=== PATIENT | male | born 1945 | race Caucasian/White ===

== ENCOUNTER 2020-12-23 14:26 | Emergency (ER) | payer MEDICARE ==
[2020-12-23 14:43] VITALS: PULSE 75
[2020-12-23] MEDS ORDERED: Adacel Vial IM ONE ×2 (15:12→15:23)
--- NOTE | 2020-12-23 15:18 | ERPHSYRPT ---
- History of Present Illness Time Seen by Provider: 12/23/20 15:13 Source: patient Exam Limitations: no limitations Patient Subjective Stated Complaint: Pt was on his golf cart and had his hand holding up on the top of it and he slipped inside the cart causing him to slide his hand and cut it on something, cut his left pinky at the base and the palm of his hand Triage Nursing Assessment: Pt brought to the ER by his grandson, hypertensive, rates pain as 2/10 in the left hand, 2 lacerations measuring approx 3.5 cm each, actively bleeding, denies any other injuries Physician History: Pt was on his golf cart and had his hand holding up on the top of it and he slipped inside the cart causing him to slide his hand and cut it on something, cut his left pinky at the base and the palm of his hand Occurred: just prior to arrival Method of Injury: incised Severity of Pain-Max: mild Severity of Pain-Current: mild Extremities Pain Location: hand: left, 5th finger: left Allergies/Adverse Reactions: Iodinated Contrast Media Allergy (Verified 12/23/20 14:43) Hx Tetanus, Diphtheria Vaccination/Date Given: No Travel Risk - International Travel Have you traveled outside of the country in past 3 weeks: No - Coronavirus Screening Are you exhibiting any of the following symptoms?: No Close contact with a COVID-19 positive Pt in past 14-21 Days: No - Vaccine Status Have you recieved a Covid-19 vaccination: Yes [employer]: [employer] - Vaccination Dates Date of 2cond Vaccination (if applicable): 05/21/2020 - Review of Systems Constitutional: No Symptoms Eyes: No Symptoms Ears, Nose, & Throat: No Symptoms Respiratory: No Symptoms Cardiac: No Symptoms Abdominal/Gastrointestinal: No Symptoms Musculoskeletal: No Symptoms Skin: Other (laceration) - Past Medical History Pertinent Past Medical History: Yes Cardiac History: High Cholesterol, Hypertension Endocrine Medical History: Diabetes Type II - Past Surgical History Past Surgical History: Yes Cardiac: CABG, Cardiac Stent Musculoskeletal: Orthopedic Surgery Other Surgical History: 10 stents, back surgeryl rotator cuff - Social History Smoking Status: Never smoker Exposure to second hand smoke: No Drug Use: none Patient Lives Alone: No - Nursing Vital Signs Nursing Vital Signs: Initial Vital Signs Temperature 96.4 F 12/23/20 14:32 Pulse Rate 75 12/23/20 14:32 Blood Pressure 150/82 12/23/20 14:32 O2 Sat by Pulse Oximetry 96 12/23/20 14:32 Pain Scale Pain Intensity 2 - Physical Exam General Appearance: no apparent distress Eyes, Ears, Nose, Throat Exam: normal ENT inspection Neck Exam: normal inspection Back Exam: normal inspection Shoulder Exam: normal inspection Elbow/Forearm Exam: normal inspection Wrist Exam: normal inspection Hand Exam: normal inspection, laceration (2 cms at base of 5th digit, 1 cm at proximal phalynx 5th digit), soft tissue tenderness, No deformity, No limited ROM, No nail injury, No stiffness Neuro/Tendon Exam: normal sensation, normal motor functions Mental Status Exam: alert Skin Exam: normal color SpO2: 96 Procedures - Laceration/Wound Repair Left Hand Time of Procedure: 15:16 Wound Location: Left (5th finger and base at 5th finger) Wound's Depth, Shape: superficial Wound Explored: clean Irrigated: Yes Hibiclens Prep: Yes Anesthesia: local, 1% Lidocaine Volume Anesthetic (ccs): 5 Wound Debrided: minimal Wound Repaired With: sutures Suture Size/Type: 4-0, nylon Number of Sutures: 5 Layer Closure?: No Sterile Dressing Applied?: Yes Splint Applied?: Yes Type of Splint Applied: finger Sling Applied?: No - Course Nursing assessment & vital signs reviewed: Yes Ordered Tests: Active Orders 24 hr Category Date Time Status Wound Care STAT Care 12/23/20 14:56 Active Medication Summary Generic Name Dose Route Start Last Admin Trade Name Freq PRN Reason Stop Dose Admin Diphtheria/Tetanus/Acell Pertussis 0.5 ml 12/23/20 15:12 Adacel Vial IM 12/23/20 15:13 .ONCE ONE - Progress Progress: improved Counseled pt/family regarding: diagnosis, need for follow-up (sutures removal in 10 days) - Departure Departure Disposition: Home Clinical Impression: Laceration of finger of left hand Qualifiers: Encounter type: initial encounter Finger: little finger Damage to nail status: without damage Foreign body presence: without foreign body Qualified Code(s): S61.217A - Laceration without foreign body of left little finger without damage to nail, initial encounter Laceration of left hand Qualifiers: Encounter type: initial encounter Foreign body presence: without foreign body Qualified Code(s): S61.412A - Laceration without foreign body of left hand, initial encounter Condition: Stable Critical Care Time: No Referrals: HOSPITAL,'S [Primary Care Provider] - Instructions: Wound Care (DC), Laceration Repair With Stitches (DC) Additional Instructions: Discharge/Care Plan BRITTANI TAYLOR was seen on 12/23/20 in the Emergency Room. The patient was counseled regarding Diagnosis,Lab results, Imaging studies, need for follow up and when to return to the Emergency Room. Prescriptions given: Discharge Note I have spoken with the patient and/or caregivers. I have explained the patient's condition, diagnosis and treatment plan based on the information available to me at this time. I have answered the patient's and/or caregiver's questions and addressed any concerns. The patient and/or caregivers have as good understanding of the patient's diagnosis, condition and treatment plan as can be expected at this point. The vital signs have been stable. The patient's condition is stable and appropriate for discharge from the emergency department. The patient will pursue further outpatient evaluation with the primary care physician or other designated or consulting physician as outlined in the discharge instructions. The patient and/or caregivers are agreeable to this plan of care and follow-up instructions have been explained in detail. The patient and/or caregivers have received these instruction. The patient/and or caregivers are aware that any significant change in condition or worsening of symptoms should prompt an immediate return to this or the closest emergency department or call 911. LACERATION CARE 1. Do not use peroxide, merthiolate, alcohol, or betadine. 2. Keep wound clean and dry. 3. Change dressing if it becomes wet or soiled. 4. If you must work, wear protective covering. 5. You may return to the emergency department or see your family physician for suture removal. 6. See your family physician or return to the emergency department for any of the following signs or symptoms: A. Redness B. Swelling C. Discolored drainage D. Red streaks E. Elevated temperature F. Other signs of infection
[2020-12-23 15:37] VITALS: BP 159/86; O2SAT 98
== END 2020-12-23 15:36 | disposition home or self-care (01) ==
LOC: ED 14:26
DX: S61.217A Laceration without foreign body of left little finger without damage to nail, initial encounter (principal); S61.412A Laceration without foreign body of left hand, initial encounter; W26.8XXA Contact with other sharp object(s), not elsewhere classified, initial encounter; Y93.53 Activity, golf
CPT/HCPCS: 12002; 90471; 90715; 99283

== ENCOUNTER 2021-01-07 15:03 | Emergency (ER) | payer MEDICARE ==
[2021-01-07] MEDS ORDERED: TORAdol 30 mg Injection IV ONE (15:44)
[2021-01-07] MEDS ORDERED: Sodium Chloride 0.9% 1000 ML 1,000 ML IV SCH (15:45)
--- NOTE | 2021-01-07 15:49 | ERPHSYRPT ---
- History of Present Illness Time Seen by Provider: 01/07/21 15:45 Historian: patient Exam Limitations: no limitations Patient Subjective Stated Complaint: abd pain and hematuria Triage Nursing Assessment: pt to ED c/o RLQ pain and hematuria. pt states his pain began around 10 days ago after he had an accident on a golf cart, hematuria and "tasting blood in my mouth" started 2-3 days ago. denies NVD or spitting up any blood. pt called [facility] today and was referred to this ED for evaluation. Physician History: Patient is a 75-year-old male presents to our ED for evaluation of abdominal pain and hematuria. Patient receives his care at the [facility]. He called the [facility] and was advised to come to our ED for evaluation. Patient states his pain started about 10 days ago. It is localized to the right lower quadrant. He is also experiencing associated hematuria. Patient fell off of a golf cart approximately 10 days ago and states his symptoms started then. He occasionally has a blood-like sensation in his mouth. No associated chest pain or shortness of breath. No nausea vomiting or diaphoresis. No trauma. No fever. Symptoms are mild to moderate in intensity. No specific worsening improving factors. Patient denies a history of the same. He voices no other complaints concerns at this time. Timing/Duration: day(s) (10 days ago) Activities at Onset: other (Fell off of a golf cart) Quality: aching Abdominal Pain Onset Location: RUQ Pain Radiation: RLQ Severity of Pain-Max: moderate Severity of Pain-Current: none Modifying Factors: Improves With: palpation Associated Symptoms: denies symptoms, No chest pain, No fever/chills, No nausea, No neck pain, No vomiting, No weakness Previous symptoms: no prior history Allergies/Adverse Reactions: Iodinated Contrast Media Allergy (Verified 01/07/21 15:17) Home Medications: Clopidogrel Bisulfate 75 mg [PLAVIX 75 MG Tablet] 75 mg PO DAILY 01/07/21 [History] Metformin HCl 500 mg [Glucophage 500 MG] 500 mg PO DAILY 01/07/21 [History] Rosuvastatin Calcium [Crestor] 5 mg PO DAILY 01/07/21 [History] Hx Tetanus, Diphtheria Vaccination/Date Given: Yes Hx Influenza Vaccination/Date Given: Yes Hx Pneumococcal Vaccination/Date Given: Yes Immunizations Up to Date: Yes Travel Risk - International Travel Have you traveled outside of the country in past 3 weeks: No - Coronavirus Screening Are you exhibiting any of the following symptoms?: No Close contact with a COVID-19 positive Pt in past 14-21 Days: No - Vaccine Status Have you recieved a Covid-19 vaccination: No Manager Critical Care Unit: [employer] - Vaccination Dates Date of 2cond Vaccination (if applicable): 05/21/2020 - Review of Systems Constitutional: No Symptoms, No Fever, No Chills Eyes: No Symptoms Ears, Nose, & Throat: No Symptoms Respiratory: No Symptoms, No Cough, No Dyspnea Cardiac: No Symptoms, No Chest Pain, No Edema, No Syncope Abdominal/Gastrointestinal: No Symptoms, No Abdominal Pain, No Nausea, No Vomiting, No Diarrhea Genitourinary Symptoms: No Symptoms, No Dysuria Musculoskeletal: No Symptoms, No Back Pain, No Neck Pain Skin: No Symptoms, No Rash Neurological: No Symptoms, No Dizziness, No Focal Weakness, No Sensory Changes Psychological: No Symptoms Endocrine: No Symptoms Hematologic/Lymphatic: No Symptoms Immunological/Allergic: No Symptoms All Other Systems: Reviewed and Negative - Past Medical History Pertinent Past Medical History: Yes Cardiac History: High Cholesterol, Hypertension Endocrine Medical History: Diabetes Type II - Past Surgical History Past Surgical History: Yes Cardiac: CABG, Cardiac Stent Musculoskeletal: Orthopedic Surgery Other Surgical History: 10 stents, back surgeryl rotator cuff - Social History Smoking Status: Never smoker Exposure to second hand smoke: No Drug Use: none Patient Lives Alone: No - Nursing Vital Signs Nursing Vital Signs: Initial Vital Signs Temperature 98.5 F 01/07/21 15:33 Pulse Rate 73 01/07/21 15:33 Respiratory Rate 16 01/07/21 15:33 Blood Pressure 136/63 01/07/21 15:33 O2 Sat by Pulse Oximetry 97 01/07/21 15:33 Pain Scale Pain Intensity 5 - Physical Exam General Appearance: no apparent distress, alert Eye Exam: PERRL/EOMI, eyes nml inspection Ears, Nose, Throat Exam: normal ENT inspection, pharynx normal, moist mucous membranes Neck Exam: normal inspection, non-tender, supple, full range of motion Respiratory Exam: normal breath sounds, lungs clear, airway intact, No chest tenderness, No respiratory distress Cardiovascular Exam: regular rate/rhythm, normal heart sounds, normal peripheral pulses Gastrointestinal/Abdomen Exam: soft, tenderness (Tenderness to palpation of right lower quadrant.), No mass Back Exam: normal inspection, normal range of motion, No CVA tenderness, No vertebral tenderness Extremity Exam: normal inspection, normal range of motion, pelvis stable Neurologic Exam: alert, oriented x 3, cooperative, normal mood/affect, sensation nml, No motor deficits Skin Exam: normal color, warm, dry Lymphatic Exam: No adenopathy SpO2 Interpretation: normal SpO2: 97 O2 Delivery: Room Air Ordered Tests: Active Orders 24 hr Category Date Time Status IV Insertion STAT Care 01/07/21 15:44 Active ABDOMEN AND PELVIS W/0 CONTRAS [CT] Stat Exams 01/07/21 15:44 Completed CBC W DIFF Stat Lab 01/07/21 16:08 Completed CMP Stat Lab 01/07/21 16:08 Completed UA W/RFX UR CULTURE Stat Lab 01/07/21 16:28 Completed Medication Summary Generic Name Dose Route Start Last Admin Trade Name Freq PRN Reason Stop Dose Admin Sodium Chloride 1,000 mls @ 100 mls/hr 01/07/21 15:45 01/07/21 16:13 Sodium Chloride 0.9% 1000 Ml IV 02/06/21 15:44 100 mls/hr .Q10H DEONDRE Administration Discontinued Medications Generic Name Dose Route Start Last Admin Trade Name Freq PRN Reason Stop Dose Admin Ketorolac Tromethamine 30 mg 01/07/21 15:44 01/07/21 16:12 Ketorolac Tromethamine 30 Mg/Ml Inj IV 01/07/21 15:45 30 mg STAT ONE Administration Ketorolac Tromethamine Confirm 01/07/21 16:11 Ketorolac Tromethamine 30 Mg/Ml Inj Administered 01/07/21 16:12 Dose 30 mg .ROUTE .Ismole-MED ONE Lab/Rad Data: Laboratory Result Diagrams 01/07/21 16:08 01/07/21 16:08 Laboratory Results 01/07/21 01/07/21 01/07/21 Range/Units 16:28 16:08 16:08 WBC 8.3 (4.0-10.5) K/mm3 RBC 4.87 (4.1-5.6) M/mm3 Hgb 14.7 (12.5-18.0) gm/dl Hct 46.7 (42-50) % MCV 95.9 (78-100) fl MCH 30.2 (26-32) pg MCHC 31.5 L (32-36) g/dl RDW 14.0 (11.5-14.0) % Plt Count 247 (150-450) K/mm3 MPV 9.2 (7.5-11.0) fl Gran % 51.2 (36.0-66.0) % Eos # (Auto) 0.13 (0-0.5) Absolute Lymphs (auto) 3.18 (1.0-4.6) Absolute Monos (auto) 0.69 (0.0-1.3) Lymphocytes % 38.2 (24.0-44.0) % Monocytes % 8.3 (0.0-12.0) % Eosinophils % 1.6 (0.00-5.0) % Basophils % 0.7 (0.0-0.4) % Absolute Granulocytes 4.26 (1.4-6.9) Basophils # 0.06 (0-0.4) Sodium 139 (137-145) mmol/L Potassium 4.8 (3.5-5.1) mmol/L Chloride 101 (98-107) mmol/L Carbon Dioxide 28 (22-30) mmol/L Anion Gap 14.3 (5-15) MEQ/L BUN 28 H (9-20) mg/dL Creatinine 1.09 (0.66-1.25) mg/dL Estimated GFR > 60.0 ML/MIN Glucose 142 H (74-106) mg/dL Calcium 9.0 (8.4-10.2) mg/dL Total Bilirubin 0.30 (0.2-1.3) mg/dL AST 34 (17-59) U/L ALT 28 (0-50) U/L Alkaline Phosphatase 57 (38-126) U/L Serum Total Protein 7.1 (6.3-8.2) g/dL Albumin 4.3 (3.5-5.0) g/dL Urine Color YELLOW (YELLOW) Urine Appearance CLEAR (CLEAR) Urine pH 5.0 (5-6) Ur Specific [place] 1.030 (1.005-1.025) Urine Protein NEGATIVE (Negative) Urine Ketones NEGATIVE (NEGATIVE) Urine Blood NEGATIVE (0-5) Héctor/ul Urine Nitrite NEGATIVE (NEGATIVE) Urine Bilirubin NEGATIVE (NEGATIVE) Urine Urobilinogen NEGATIVE (0-1) mg/dL Ur Leukocyte Esterase NEGATIVE (NEGATIVE) Urine WBC (Auto) NONE (0-5) /HPF Urine RBC (Auto) 0-2 (0-2) /HPF U Epithel Cells (Auto) NONE (FEW) /HPF Urine Bacteria (Auto) NONE (NEGATIVE) /HPF Urine Mucus (Auto) SLIGHT (NEGATIVE) /HPF Urine Culture Reflexed NO (NO) Urine Glucose NEGATIVE (NEGATIVE) mg/dL - Progress Progress: improved Progress Note: Patient reassessed. Pain resolved. Work-up essentially unremarkable. Patient described hematuria however there is no hematuria observed in his urinalysis. Laboratory work-up essentially nonremarkable. CT scan did not reveal a kidney stone. Appendix is normal. There is some fecal stasis. However no acute int ra-abdominal process. No indication for further work-up or antibiotics. Will discharge patient home. Patient agrees to follow-up with his primary care doctor within 48 hours for reevaluation. Plan of care discussed with patient. He voices no other complaints or concerns at this time. Portions of this note were created with voice recognition technology. There may be grammatical, spelling, punctuation or sound alike errors 01/07/21 17:50 Counseled pt/family regarding: lab results, diagnosis, need for follow-up, rad results - Departure Departure Disposition: Home Clinical Impression: Left nephrolithiasis, Duodenal lipoma, Fatty liver, Aortoiliac calcifications, Arthritis of spine, Spondylolisthesis Condition: Stable Critical Care Time: No Referrals: HOSPITAL,'S [Primary Care Provider] - Additional Instructions: Discharge/Care Plan BRANDONBRITTANI ESTEBAN was seen on 01/07/21 in the Emergency Room. The patient was counseled regarding Diagnosis,Lab results, Imaging studies, need for follow up and when to return to the Emergency Room. Prescriptions given: Discharge Note I have spoken with the patient and/or caregivers. I have explained the patient's condition, diagnosis and treatment plan based on the information available to me at this time. I have answered the patient's and/or caregiver's questions and addressed any concerns. The patient and/or caregivers have as good understanding of the patient's diagnosis, condition and treatment plan as can be expected at this point. The vital signs have been stable. The patient's condition is stable and appropriate for discharge from the emergency department. The patient will pursue further outpatient evaluation with the primary care physician or other designated or consulting physician as outlined in the dischar ge instructions. The patient and/or caregivers are agreeable to this plan of care and follow-up instructions have been explained in detail. The patient and/or caregivers have received these instruction. The patient/and or caregivers are aware that any significant change in condition or worsening of symptoms should prompt an immediate return to this or the closest emergency department or call 911.
[2021-01-07] MEDS ORDERED: TORAdol 30 mg Injection ONE (16:11)
[2021-01-07] MEDS ORDERED: Sodium Chloride 0.9% 1000 ML 1,000 ML ONE (16:11)
[2021-01-07 16:24] LABS: Absolute Neutrophil Ct (ANC) 4.26 (1.4-6.9); BASOPHIL % 0.7 % (0.0-0.4); Basophil (Absolute #) 0.06 (0-0.4); Eosinophil % 1.6 % (0.00-5.0); Eosinophil (Absolute #) 0.13 (0-0.5); Hematocrit 46.7 % (42-50); Hemoglobin 14.7 gm/dl (12.5-18.0); Lymphocyte (Absolute #) 3.18 (1.0-4.6); Lymphocytes % 38.2 % (24.0-44.0); Mean Cell Volume 95.9 fl (78-100); Mean Corpuscular Hemoglobin 30.2 pg (26-32); Mean Corpuscular Hgb Concent. 31.5 g/dl (32-36); Mean Platelet Volume 9.2 fl (7.5-11.0); Monocyte (Absolute #) 0.69 (0.0-1.3); Monocytes % 8.3 % (0.0-12.0); Neutrophil % 51.2 % (36.0-66.0); Platelet Count 247 K/mm3 (150-450); Red Blood Count 4.87 M/mm3 (4.1-5.6); White Blood Count 8.3 K/mm3 (4.0-10.5)
--- NOTE | 2021-01-07 16:28 | XRAY ---
Indication: Right abdomen pain. Hematuria. Urolithiasis. Multiple contiguous axial images obtained through the abdomen and pelvis without contrast using renal stone protocol. Comparison: None Lung bases demonstrates minimal dependent atelectasis. No infiltrate or effusion. Heart not enlarged. Left kidney demonstrates nonobstructing punctate calculus. No other renal calculus or evidence for obstructive uropathy in either system. Stomach is markedly distended with food/fluid. Noncontrasted stomach and bowel loops appear nonobstructed. 1.5 cm descending duodenal lipoma. Normal appendix. Mild diffuse scattered colonic fecal debris throughout. Mild diffuse fatty liver. No free fluid/air. Remaining liver, gallbladder, pancreas, spleen, adrenal glands, kidneys, ureters, and bladder are unremarkable for noncontrast exam. Mild/moderate scattered aortoiliac calcifications without AAA. Osseous structures intact with mild/moderate degenerative changes throughout the thoracolumbar spine greatest at L4-S1. Also bilateral L5 spondylolysis with 2 mm spondylolisthesis. Impression: 1. Nonobstructing left renal punctate calculus. 2. Diffuse fecal stasis. 3. Incidental fatty liver, small duodenal lipoma, and chronic bony findings.
[2021-01-07 16:44] LABS: ALBUMIN 4.3 g/dL (3.5-5.0); ALKALINE PHOSPHATASE 57 U/L (38-126); ANION GAP 14.3 MEQ/L (5-15); BLOOD UREA NITROGEN 28 mg/dL (9-20); CHLORIDE 101 mmol/L (98-107); Carbon Dioxide 28 mmol/L (22-30); Creatinine 1 1.09 mg/dL (0.66-1.25); EST GLOMERULAR FILTRATION RATE > 60.0 ML/MIN; Glucose 142 mg/dL (74-106); Potassium 4.8 mmol/L (3.5-5.1); SGOT/AST 34 U/L (17-59); SGPT/ALT 28 U/L (0-50); SODIUM 139 mmol/L (137-145); Total Protein 7.1 g/dL (6.3-8.2)
[2021-01-07 17:17] LABS: Appearance CLEAR (CLEAR); Bilirubin NEGATIVE (NEGATIVE); Blood NEGATIVE Ery/ul (0-5); Glucose NEGATIVE (NEGATIVE); Ketones NEGATIVE (NEGATIVE); Leukocyte Esterase NEGATIVE (NEGATIVE); Mucus SLIGHT /HPF (NEGATIVE); Nitrite NEGATIVE (NEGATIVE); Protein,Urine Dip NEGATIVE (Negative); RBC 0-2 /HPF (0-2); Urobilinogen NEGATIVE mg/dL (0-1)
[2021-01-07 17:33] VITALS: O2SAT 97
[2021-01-07 18:05] VITALS: BP 123/60; PULSE 73
== END 2021-01-07 18:22 | disposition home or self-care (01) ==
LOC: ED 15:03
DX: N20.0 Calculus of kidney (principal); D17.79 Benign lipomatous neoplasm of other sites; K76.0 Fatty (change of) liver, not elsewhere classified; I70.0 Atherosclerosis of aorta; M47.9 Spondylosis, unspecified; M43.10 Spondylolisthesis, site unspecified
CPT/HCPCS: 36000; 36415; 74176; 80053; 81001; 85025; 96374; 99284; J1885

== ENCOUNTER 2023-03-21 10:50 | Emergency (ER) | payer OTHER ==
[2023-03-21 11:36] VITALS: TEMP 98.6; O2SAT 95
--- NOTE | 2023-03-21 12:00 | ERPHSYRPT ---
- History of Present Illness Time Seen by Provider: 03/21/23 11:58 Source: patient Exam Limitations: no limitations Patient Subjective Stated Complaint: Cough Triage Nursing Assessment: Patient ambulated back to ED and requested to sit in chair. Patient A+O X 3. Patient complains of cough for a couple of weeks. Patient states his cough is now productive with thick brown/yellow sputum. Patient complains of left sided back pain 4/10. Patient's daughter lives with him and tested positive for Covid 2 days ago. Lungs clear A/P herman. Physician History: Patient complains of cough for a couple of weeks. Patient states his cough is now productive with thick brown/yellow sputum. Patient complains of left sided back pain /10. Patient's daughter lives with him and tested positive for Covid 2 days ago. Timing/Duration: week(s) (two weeks) Cough Quality/Degree: moderate, productive cough Associated Symptoms: chest pain/soreness, cough, No fever, No chills, No shortness of breath Allergies/Adverse Reactions: Iodinated Contrast Media Allergy (Verified 03/21/23 11:27) Home Medications: Metformin HCl 500 mg [Glucophage 500 MG] 500 mg PO DAILY 01/07/21 [History] Rosuvastatin Calcium [Crestor] 5 mg PO DAILY 01/07/21 [History] Hx Tetanus, Diphtheria Vaccination/Date Given: Yes Hx Influenza Vaccination/Date Given: Yes Hx Pneumococcal Vaccination/Date Given: Yes Immunizations Up to Date: Yes Travel Risk - International Travel Have you traveled outside of the country in past 3 weeks: No - Coronavirus Screening Are you exhibiting any of the following symptoms?: Yes Symptoms: Cough: New Onset, Shortness of Breath Close contact with a COVID-19 positive Pt in past 14-21 Days: Yes - Vaccine Status Have you recieved a Covid-19 vaccination: 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: [employer] - Vaccination Dates Date of 2cond Vaccination (if applicable): 05/21/2020 - Review of Systems Constitutional: No Fever, No Chills Eyes: No Symptoms Ears, Nose, & Throat: No Symptoms Respiratory: Cough, No Dyspnea Cardiac: Chest Pain, No Edema, No Syncope Abdominal/Gastrointestinal: No Abdominal Pain, No Nausea, No Vomiting, No Diarrhea Genitourinary Symptoms: No Dysuria Musculoskeletal: No Back Pain, No Neck Pain Skin: No Rash Neurological: No Dizziness, No Focal Weakness, No Sensory Changes Psychological: No Symptoms Endocrine: No Symptoms All Other Systems: Reviewed and Negative - Past Medical History Pertinent Past Medical History: Yes Neurological History: No Pertinent History Cardiac History: Coronary Artery Disease, High Cholesterol, Hypertension, Myocardial Infarction ([place]) Respiratory History: No Pertinent History Endocrine Medical History: Diabetes Type II Other Medical History: HX OF SAME INJURY TO LEFT QUAD WITH SURGICAL REPAIR. - Past Surgical History Past Surgical History: Yes Cardiac: CABG, Cardiac Stent Musculoskeletal: Orthopedic Surgery Other Surgical History: 10 stents, back surgeryl rotator cuff - Social History Smoking Status: Never smoker Exposure to second hand smoke: No Drug Use: none Patient Lives Alone: No - Nursing Vital Signs Nursing Vital Signs: Initial Vital Signs Temperature 98.6 F 03/21/23 11:28 Pulse Rate 72 03/21/23 11:28 Respiratory Rate 18 03/21/23 11:28 Blood Pressure 148/65 03/21/23 11:28 O2 Sat by Pulse Oximetry 98 03/21/23 11:28 Pain Scale Pain Intensity 4 - Physical Exam General Appearance: no apparent distress, alert Eye Exam: PERRL/EOMI, eyes nml inspection Ears, Nose, Throat Exam: normal ENT inspection, TMs normal, pharynx normal, moist mucous membranes Neck Exam: normal inspection, non-tender, supple, full range of motion Respiratory Exam: diminished breath sounds, No respiratory distress Cardiovascular Exam: regular rate/rhythm, normal heart sounds Gastrointestinal/Abdomen Exam: soft, No tenderness Back Exam: normal inspection, No CVA tenderness, No vertebral tenderness Extremity Exam: normal inspection, normal range of motion Neurologic Exam: alert, oriented x 3, cooperative, normal mood/affect, sensation nml, No motor deficits Skin Exam: normal color, warm, dry, No rash Lymphatic Exam: No adenopathy SpO2: 95 - Course Nursing assessment & vital signs reviewed: Yes EKG Interpreted by Me: Sinus Rhythm Rhythm Strip: Normal Sinus Rhythm - Radiology Exams Chest X-ray Interpretation: Reviewed by me, Negative, No Pneumonia Ordered Tests: Active Orders 24 hr Category Date Time Status EKG-ER Only STAT Care 03/21/23 11:54 Active CHEST 2 VIEWS (PA AND LAT) Stat Exams 03/21/23 11:54 Taken CBC W DIFF Stat Lab 03/21/23 12:15 Completed CMP Stat Lab 03/21/23 12:15 Completed PROCALCITONIN Stat Lab 03/21/23 12:15 Received Medication Summary Discontinued Medications Generic Name Dose Route Start Last Admin Trade Name Freq PRN Reason Stop Dose Admin Guaifenesin/Codeine Phosphate 10 ml 03/21/23 12:25 Guaifenesin/Codeine Phosphate 5 Ml Udcup PO 03/21/23 12:26 ONCE ONE Lab/Rad Data: Laboratory Result Diagrams 03/21/23 12:15 03/21/23 12:15 Laboratory Results 03/21/23 03/21/23 03/21/23 Range/Units 12:15 12:15 11:17 WBC 6.0 (4.0-10.5) x10^3/uL RBC 4.85 (4.1-5.6) x10^6/uL Hgb 15.6 (12.5-18.0) g/dL Hct 47.0 (42-50) % MCV 96.9 (78-100) fL MCH 32.2 H (26-32) pg MCHC 33.2 (32-36) g/dL RDW 13.4 (11.5-14.0) % Plt Count 227 (150-450) x10^3/uL MPV 8.7 (7.5-11.0) fL Gran % 46.1 (36.0-66.0) % Immature Gran % (Auto) 0.3 (0.00-0.4) % Nucleat RBC Rel Count 0.0 (0.00-0.1) % Eos # (Auto) 0.12 (0-0.5) x10^3/uL Immature Gran # (Auto) 0.02 (0.00-0.03) x10^3u/L Absolute Lymphs (auto) 2.37 (1.0-4.6) x10^3/uL Absolute Monos (auto) 0.66 (0.0-1.3) x10^3/uL Absolute Nucleated RBC 0.00 (0.00-0.01) x10^3u/L Lymphocytes % 39.6 (24.0-44.0) % Monocytes % 11.0 (0.0-12.0) % Eosinophils % 2.0 (0.00-5.0) % Basophils % 1.0 (0.0-0.4) % Absolute Granulocytes 2.76 (1.4-6.9) x10^3/uL Basophils # 0.06 (0-0.4) x10^3/uL Sodium 131 L (137-145) mmol/L Potassium 4.2 (3.5-5.1) mmol/L Chloride 100 (98-107) mmol/L Carbon Dioxide 26 (22-30) mmol/L Anion Gap 9.2 (5-15) MEQ/L BUN 20 (9-20) mg/dL Creatinine 0.71 (0.66-1.25) mg/dL Estimated GFR 95.1 ML/MIN Glucose 99 (74-106) mg/dL Calcium 8.6 (8.4-10.2) mg/dL Total Bilirubin 0.50 (0.2-1.3) mg/dL AST 36 (17-59) U/L ALT 40 (0-50) U/L Alkaline Phosphatase 54 (38-126) U/L Serum Total Protein 7.2 (6.3-8.2) g/dL Albumin 4.3 (3.5-5.0) g/dL Influenza Type A Ag NEGATIVE (NEGATIVE) Influenza Type B Ag NEGATIVE (NEGATIVE) RSV (PCR) NEGATIVE (NEGATIVE) SARS-CoV-2 (PCR) POSITIVE A (NEGATIVE) - Progress Progress: improved Air Movement: good Blood Culture(s) Obtained: No Antibiotics given: No Counseled pt/family regarding: lab results, diagnosis, need for follow-up, rad results Medical Desision Making - Diagnostic Testing Diagnostic test were ordered, analyzed, and reviewed by me: Yes Radiological Interpretation: Reviewed by me - Risk of complications Low Risk: Low risk of morbidity from additional dx testing or treatment - Departure Departure Disposition: Home Clinical Impression: COVID-19, Cough with exposure to COVID-19 virus Condition: Stable Critical Care Time: No Referrals: HOSPITAL,'S [Primary Care Provider] - Follow up/PCP as directed Instructions: Cough, Adult (DC), COVID-19 (DC) Additional Instructions: Discharge/Care Plan BRITTANI TAYLOR was seen on 03/21/23 in the Emergency Room. The patient was counseled regarding Diagnosis,Lab results, Imaging studies, need for follow up and when to return to the Emergency Room. Prescriptions given: Discharge Note I have spoken with the patient and/or caregivers. I have explained the patient's condition, diagnosis and treatment plan based on the information available to me at this time. I have answered the patient's and/or caregiver's questions and addressed any concerns. The patient and/or caregivers have as good understanding of the patient's diagnosis, condition and treatment plan as can be expected at this point. The vital signs have been stable. The patient's condition is stable and appropriate for discharge from the emergency department. The patient will pursue further outpatient evaluation with the primary care physician or other designated or consulting physician as outlined in the discharge instructions. The patient and/or caregivers are agreeable to this plan of care and follow-up instructions have been explained in detail. The patient and/or caregivers have received these instruction. The patient/and or caregivers are aware that any significant change in condition or worsening of symptoms should prompt an immediate return to this or the closest emergency department or call 911. BRANDONBRITTANI ESTEBAN was seen on 03/21/23 n the Emergency Room. At that time you were treated for an emergent condition, during your visit Laboratory, Radiology and/or other procedures may have been ordered. It is very important that you follow-up with your Primary Care Physician [facility] within the next 24-48 hours to review your Emergency Room visit and the final results of testing that was ordered. Some test results such as Urine Cultures, Blood Cultures, and other cultures if ordered will not be finalized for 24-48 hours. If you do not have a Primary Care Provider please call the medical records department at [phone] ext [phone] to obtain a copy of your results or you may sign into our patient portal to obtain these results by visiting us @ [email or web address] and completing the following steps: 1. Click on the Patient Portal link 2. Click the Patient Self Enrollment Link to complete the enrollment form and entering your 3. Once the enrollment form is completed you will receive an email with a t emporary ID and password at the email address you provided. 4. Next choose a user name and password. Your user name must be at least 4 characters long and your password must be at least 4 characters long. 5. Choose a security question from the list and provide your answer to the question. If you already have signed into the Health Portal you may access your Health Care Information 13/10 by the following steps: 1. Login to our website @ [email or web address] 2. Enter your original user name and password. FAQS The [facility] Health Portal is an online tool that contains your Lab Results, Radiology Reports, Visit History, Discharge Instructions and Health Summary Lab and Radiology Results will not be available for 72 hours on the portal. The Portal is a secure site, passwords are encryted and URLs are re-written so they cannot be copied and pasted. You and authorized family members are the only ones who can access your Portal. Also there is a timeout feature that protects your information if you leave the Portal page open. If you have technical difficulty please use the Contact Us link on the page this will allow you to submit any questions you have regarding the Portal or you may contact the Medical Record Department at [phone] ext [phone]. Prescriptions: Benzonatate 100 mg PO TID #15 cap Nirmatrelvir/Ritonavir [Paxlovid 150-100 mg Dose Pack] 1 each PO UD #20 tab
[2023-03-21 12:01] LABS: INFLUENZA A NEGATIVE (NEGATIVE); INFLUENZA B NEGATIVE (NEGATIVE); RESPIRATORY SYNCTIAL VIRUS NEGATIVE (NEGATIVE)
[2023-03-21 12:04] LABS: SARS-CoV-2 Xpert Express POSITIVE (NEGATIVE)
[2023-03-21] MEDS ORDERED: Robitussin AC Syrup Unit Dose Cup PO ONE (12:25)
[2023-03-21 12:28] LABS: Absolute Neutrophil Ct (ANC) 2.76 x10^3/uL (1.4-6.9); Basophil (Absolute #) 0.06 x10^3/uL (0-0.4); Eosinophil (Absolute #) 0.12 x10^3/uL (0-0.5); Hemoglobin 15.6 g/dL (12.5-18.0); IMMATURE GRAN # 0.02 x10^3u/L (0.00-0.03); IMMATURE GRAN % 0.3 % (0.00-0.4); Lymphocyte (Absolute #) 2.37 x10^3/uL (1.0-4.6); Lymphocytes % 39.6 % (24.0-44.0); Mean Cell Volume 96.9 fL (78-100); Mean Corpuscular Hemoglobin 32.2 pg (26-32); Mean Corpuscular Hgb Concent. 33.2 g/dL (32-36); Mean Platelet Volume 8.7 fL (7.5-11.0); Monocyte (Absolute #) 0.66 x10^3/uL (0.0-1.3); Neutrophil % 46.1 % (36.0-66.0); Platelet Count 227 x10^3/uL (150-450); Red Blood Count 4.85 x10^6/uL (4.1-5.6); Red Cell Distribution Width 13.4 % (11.5-14.0)
[2023-03-21 12:41] LABS: ALBUMIN 4.3 g/dL (3.5-5.0); ANION GAP 9.2 MEQ/L (5-15); BILIRUBIN,TOTAL 0.5 mg/dL (0.2-1.3); Calcium 8.6 mg/dL (8.4-10.2); Creatinine 1 0.71 mg/dL (0.66-1.25); EST GLOMERULAR FILTRATION RATE 95.1 ML/MIN; Potassium 4.2 mmol/L (3.5-5.1); Total Protein 7.2 g/dL (6.3-8.2)
[2023-03-21 12:57] VITALS: BP 150/90; PULSE 71; RESP 18
--- NOTE | 2023-03-21 20:50 | XRAY ---
Indication: Cough. Comparison: January 30, 2021 PA/lateral chest remains hyperinflated and clear. Heart not enlarged again with CABG. Bony thorax intact again with osteopenia and mild degenerative changes. Impression: Continued nonacute chest with chronic features.
== END 2023-03-21 13:15 | disposition home or self-care (01) ==
LOC: ED 10:50
DX: U07.1 COVID-19 (principal); R05.1 Acute cough; M54.9 Dorsalgia, unspecified; E78.5 Hyperlipidemia, unspecified; I10 Essential (primary) hypertension; E11.9 Type 2 diabetes mellitus without complications; Z79.84 Long term (current) use of oral hypoglycemic drugs; Z79.899 Other long term (current) drug therapy
CPT/HCPCS: 0241U; 36415; 71046; 80053; 84145; 85025; 93005; 99283

== ENCOUNTER 2023-04-06 14:58 | Emergency (ER) | payer OTHER ==
--- NOTE | 2023-04-06 15:02 | ERPHSYRPT ---
- History of Present Illness Time Seen by Provider: 04/06/23 15:01 Source: patient, family Exam Limitations: no limitations Physician History: This is a 78-year-old white male patient who receives his medical care primarily at the [facility] and was diagnosed with COVID-19 infection approximately 2 weeks ago in our emergency department on 03/21/2023. Patient was then seen at the [facility] on the prior to today's evaluation and was placed on steroids and cough medicine. He was told to follow-up with them if his symptoms did not markedly improved. They did not. However, today is a holiday for [employer] and he was told to come to the emergency department for reevaluation. Patient has a dry, nonproductive cough. He arrives with a room air oxygen saturation level of 88%. He does have right upper anterior chest pain. He is mildly short of breath. He has no abdominal pain. He has no nausea vomiting or diarrhea symptoms. Patient states that 2 weeks ago he had some pain in his left anterior chest and today the pain is in the right chest as described above. Patient has a history of hyperlipidemia, diabetes, he had CABG surgery as well as cardiac stent placement. He also has hypertension. Timing/Duration: week(s) (4), worse Cough Quality/Degree: moderate, dry cough Possible Cause: occasional episodes Modifying Factors: Improves With: coughing Associated Symptoms: chest pain/soreness (Right anterior upper chest with coughing), cough, shortness of breath (Mild secondary to coughing) Allergies/Adverse Reactions: Iodinated Contrast Media Allergy (Verified 04/06/23 15:15) Home Medications: Metformin HCl 500 mg [Glucophage 500 MG] 500 mg PO BID 01/07/21 [History] Rosuvastatin Calcium [Crestor] 5 mg PO DAILY 01/07/21 [History] Aspirin 325 mg PO DAILY 04/06/23 [History] Semaglutide [Ozempic] 0.25 mg SQ WEEKLY 04/06/23 [History] Hx Tetanus, Diphtheria Vaccination/Date Given: Yes Hx Influenza Vaccination/Date Given: Yes Hx Pneumococcal Vaccination/Date Given: Yes Travel Risk - International Travel Have you traveled outside of the country in past 3 weeks: No - Coronavirus Screening Are you exhibiting any of the following symptoms?: Yes Symptoms: Cough: New Onset, Shortness of Breath Close contact with a COVID-19 positive Pt in past 14-21 Days: No - Vaccine Status Have you recieved a Covid-19 vaccination: No 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 - Vaccination Dates Date of 2cond Vaccination (if applicable): 05/21/2020 - Review of Systems Constitutional: No Symptoms Eyes: No Symptoms Ears, Nose, & Throat: No Symptoms Respiratory: Cough, Dyspnea Cardiac: Chest Pain (Right upper anterior chest with coughing) Abdominal/Gastrointestinal: No Symptoms Genitourinary Symptoms: No Symptoms Musculoskeletal: No Symptoms Skin: No Symptoms Neurological: No Symptoms Psychological: No Symptoms Endocrine: No Symptoms Hematologic/Lymphatic: No Symptoms Immunological/Allergic: No Symptoms All Other Systems: Reviewed and Negative - Past Medical History Pertinent Past Medical History: Yes Neurological History: No Pertinent History Cardiac History: Coronary Artery Disease, High Cholesterol, Hypertension, Myocardial Infarction ([place]) Respiratory History: No Pertinent History Endocrine Medical History: Diabetes Type II Other Medical History: HX OF SAME INJURY TO LEFT QUAD WITH SURGICAL REPAIR. - Past Surgical History Past Surgical History: Yes Cardiac: CABG, Cardiac Stent Musculoskeletal: Orthopedic Surgery Other Surgical History: 10 stents, back surgeryl rotator cuff - Social History Smoking Status: Never smoker Exposure to second hand smoke: No Drug Use: none Patient Lives Alone: No - Nursing Vital Signs Nursing Vital Signs: Initial Vital Signs Temperature 98.7 F 04/06/23 15:02 Pulse Rate 77 04/06/23 15:02 Respiratory Rate 22 04/06/23 15:02 Blood Pressure 155/91 04/06/23 15:02 O2 Sat by Pulse Oximetry 86 L 04/06/23 15:02 Pain Scale Pain Intensity 7 - Physical Exam General Appearance: no apparent distress, alert, anxiety, obese Eye Exam: PERRL/EOMI, eyes nml inspection Ears, Nose, Throat Exam: normal ENT inspection, moist mucous membranes Neck Exam: normal inspection, non-tender, supple, full range of motion Respiratory Exam: chest tenderness (Right upper anterior chest with coughing), respiratory distress (While), diminished breath sounds (Bilateral chest), No accessory muscle use, No rhonchi, No wheezing, No stridor Cardiovascular Exam: regular rate/rhythm, normal heart sounds, normal peripheral pulses Gastrointestinal/Abdomen Exam: soft, normal bowel sounds, No tenderness Rectal Exam: not done Back Exam: normal inspection, normal range of motion, No CVA tenderness, No vertebral tenderness Extremity Exam: normal inspection, normal range of motion, pelvis stable Neurologic Exam: alert, oriented x 3, cooperative, pulp piler II-XII nml as tested, normal mood/affect, nml station & gait, sensation nml Skin Exam: normal color, warm, dry Lymphatic Exam: No adenopathy SpO2 Interpretation: normal O2 Delivery: Room Air - Course Nursing assessment & vital signs reviewed: Yes EKG Interpreted by Me: RATE (72), Sinus Rhythm, NORMAL AXIS, NORMAL QRS, Other (Prolonged ID interval. No evidence of acute ischemia on today's twelve-lead EKG.) Ordered Tests: Active Orders 24 hr Category Date Time Status EKG-ER Only STAT Care 04/06/23 15:20 Active IV Insertion STAT Care 04/06/23 15:20 Active Pulse Oximetry (ED) STAT Care 04/06/23 15:20 Active CHEST WITHOUT CONTRAST [CT] Stat Exams 04/06/23 15:22 Completed CBC W DIFF Stat Lab 04/06/23 15:55 Completed CMP Stat Lab 04/06/23 15:55 Completed NT PRO BNPII Stat Lab 04/06/23 15:55 Completed TROPONIN Q4H Lab 04/06/23 15:55 Completed TROPONIN Q4H Lab 04/06/23 19:30 Ordered TROPONIN Q4H Lab 04/06/23 23:30 Ordered Flutter Therapy UD RT 04/06/23 15:59 Active Respiratory Therapy Assessment DAILY RT 04/06/23 15:45 Active Medication Summary Discontinued Medications Generic Name Dose Route Start Last Admin Trade Name Freq PRN Reason Stop Dose Admin Hydrocodone Bitart/Acetaminophen 15 ml 04/06/23 15:27 04/06/23 16:01 Hydrocodone/Acetaminophen 5 Ml Udcup PO 04/06/23 15:28 15 ml STAT STA Administration Hydrocodone Bitart/Acetaminophen Confirm 04/06/23 15:55 Hydrocodone/Acetaminophen 5 Ml Udcup Administered 04/06/23 15:56 Dose 15 ml .ROUTE .STK-MED ONE Albuterol/Ipratropium 3 ml 04/06/23 15:23 04/06/23 15:42 Ipratropium/Albuterol Sulfate 3 Ml Ampul.Neb IH 04/06/23 15:24 3 ml STAT ONE Administration Albuterol/Ipratropium Confirm 04/06/23 15:36 Ipratropium/Albuterol Sulfate 3 Ml Ampul.Neb Administered 04/06/23 15:37 Dose 3 ml IH .STK-MED ONE Methylprednisolone Sodium 0 mg 04/06/23 15:23 04/06/23 16:04 Succinate 125 mg/ Sterile IV 04/06/23 15:24 125 mg Water 2 ml STAT ONE Administration Methylprednisolone Sodium Succinate Confirm 04/06/23 15:55 Methylprednis Sod Succ 125 Mg/2 Ml Vial Administered 04/06/23 15:56 Dose 125 mg .ROUTE .STK-MED ONE Sterile Water Confirm 04/06/23 15:54 Water For Injection,Sterile 10 Ml Vial Administered 04/06/23 15:55 Dose 10 ml IJ .STK-MED ONE Lab/Rad Data: Laboratory Result Diagrams 04/06/23 15:55 04/06/23 15:55 Laboratory Results 04/06/23 04/06/23 04/06/23 Range/Units 15:55 15:55 15:55 WBC 8.8 (4.0-10.5) x10^3/uL RBC 4.83 (4.1-5.6) x10^6/uL Hgb 15.5 (12.5-18.0) g/dL Hct 46.8 (42-50) % MCV 96.9 (78-100) fL MCH 32.1 H (26-32) pg MCHC 33.1 (32-36) g/dL RDW 13.9 (11.5-14.0) % Plt Count 199 (150-450) x10^3/uL MPV 8.8 (7.5-11.0) fL Gran % 46.9 (36.0-66.0) % Immature Gran % (Auto) 0.3 (0.00-0.4) % Nucleat RBC Rel Count 0.0 (0.00-0.1) % Eos # (Auto) 0.13 (0-0.5) x10^3/uL Immature Gran # (Auto) 0.03 (0.00-0.03) x10^3u/L Absolute Lymphs (auto) 3.45 (1.0-4.6) x10^3/uL Absolute Monos (auto) 0.98 (0.0-1.3) x10^3/uL Absolute Nucleated RBC 0.00 (0.00-0.01) x10^3u/L Lymphocytes % 39.0 (24.0-44.0) % Monocytes % 11.1 (0.0-12.0) % Eosinophils % 1.5 (0.00-5.0) % Basophils % 1.2 (0.0-0.4) % Absolute Granulocytes 4.14 (1.4-6.9) x10^3/uL Basophils # 0.11 (0-0.4) x10^3/uL Sodium 133 L (137-145) mmol/L Potassium 4.6 (3.5-5.1) mmol/L Chloride 99 (98-107) mmol/L Carbon Dioxide 29 (22-30) mmol/L Anion Gap 10.4 (5-15) MEQ/L BUN 15 (9-20) mg/dL Creatinine 0.85 (0.66-1.25) mg/dL Estimated GFR 89.5 ML/MIN Glucose 81 (74-106) mg/dL Calcium 9.2 (8.4-10.2) mg/dL Total Bilirubin 0.50 (0.2-1.3) mg/dL AST 40 (17-59) U/L ALT 45 (0-50) U/L Alkaline Phosphatase 50 (38-126) U/L Troponin I < 0.012 (0.000-0.034) ng/mL NT-Pro-B Natriuret Pep 135 (<300) pg/mL Serum Total Protein 7.2 (6.3-8.2) g/dL Albumin 4.3 (3.5-5.0) g/dL - Progress Progress: improved, re-examined Air Movement: good Progress Note: 04/06/23 16:08 This patient's medical issue is 1 of moderate complexity. The level of complexity and the workup performed is based on review of the patient's past medical history, review of the patient's medication list, review of the patient's drug allergy list, review of the history of present illness, and physical findings on examination. Workup in this patient includes placement of intravenous line, infusion of Solu-Medrol 125 mg, oral hydrocodone and acetaminophen elixir for cough, CBC, CMP, BNP, troponin level, twelve-lead EKG and CT scan of the chest without contrast 04/06/23 16:41 CT scan of the chest without contrast was interpreted by the radiologist and I reviewed the impression. Impression states chronic findings including CABG, degenerative spondylosis and old granulomatous disease. 04/06/23 18:19 I interpreted the patient's laboratory data. He has no evidence of any acute or emergent medical issue based on his lab results. Clinically, the patient is feeling much improved. He was ambulating in room air oxygen saturation level while ambulating is 94%. We will provide the patient with additional prescription of steroids and antitussive medication. Blood Culture(s) Obtained: No Antibiotics given: No Counseled pt/family regarding: lab results, diagnosis, rad results Medical Desision Making - Diagnostic Testing Diagnostic test were ordered, analyzed, and reviewed by me: Yes Radiological Interpretation: Reviewed by me, Teleradiologist Report - Risk of complications The pt has a mod risk of morbidity or mortality based on: Need for prescription drug management - Departure Departure Disposition: Home Clinical Impression: Cough, COVID-19 virus infection Condition: Stable Critical Care Time: No Referrals: HOSPITAL,'S [Primary Care Provider] - Follow up/PCP as directed Additional Instructions: Drink plenty of clear liquids. Take all your medication as prescribed. After you complete your current steroids and cough medicine, use your new steroids and cough medicine that has been prescribed to you. Prescriptions: Prednisone 10 mg [Deltasone 10 mg] 10 mg PO TID #12 tablet Hydrocodone/Acetaminophen [Hydrocodone-Acetamn 7.5-325/15] 10 ml PO Q8H PRN #120 ml MDD 30 ml PRN Reason: Cough
[2023-04-06 15:15] VITALS: TEMP 98.7
[2023-04-06] MEDS ORDERED: DUONEB 0.5-3 MG/3 ml Neb IH ONE ×2 (15:23→15:36)
[2023-04-06] MEDS ORDERED: solu-MEDROL 125 MG, Sterile H2O 10 ml 2 ML IV ONE ×2 (15:23)
[2023-04-06] MEDS ORDERED: HYDROCODONE-ACETAMIN 2.5-108/5 ML SOLUTION PO STA (15:27)
[2023-04-06] MEDS ORDERED: Sterile H2O 10 ml IJ ONE (15:54)
[2023-04-06] MEDS ORDERED: solu-MEDROL ONE (15:55)
[2023-04-06] MEDS ORDERED: HYDROCODONE-ACETAMIN 2.5-108/5 ML SOLUTION ONE (15:55)
[2023-04-06 16:03] LABS: Absolute Neutrophil Ct (ANC) 4.14 x10^3/uL (1.4-6.9); BASOPHIL % 1.2 % (0.0-0.4); Basophil (Absolute #) 0.11 x10^3/uL (0-0.4); Eosinophil % 1.5 % (0.00-5.0); Eosinophil (Absolute #) 0.13 x10^3/uL (0-0.5); Hematocrit 46.8 % (42-50); Hemoglobin 15.5 g/dL (12.5-18.0); IMMATURE GRAN # 0.03 x10^3u/L (0.00-0.03); IMMATURE GRAN % 0.3 % (0.00-0.4); Lymphocyte (Absolute #) 3.45 x10^3/uL (1.0-4.6); Mean Cell Volume 96.9 fL (78-100); Mean Corpuscular Hemoglobin 32.1 pg (26-32); Mean Corpuscular Hgb Concent. 33.1 g/dL (32-36); Mean Platelet Volume 8.8 fL (7.5-11.0); Monocyte (Absolute #) 0.98 x10^3/uL (0.0-1.3); Monocytes % 11.1 % (0.0-12.0); Neutrophil % 46.9 % (36.0-66.0); Platelet Count 199 x10^3/uL (150-450); Red Blood Count 4.83 x10^6/uL (4.1-5.6); Red Cell Distribution Width 13.9 % (11.5-14.0); White Blood Count 8.8 x10^3/uL (4.0-10.5)
[2023-04-06 16:26] LABS: ALBUMIN 4.3 g/dL (3.5-5.0); ANION GAP 10.4 MEQ/L (5-15); BILIRUBIN,TOTAL 0.5 mg/dL (0.2-1.3); Calcium 9.2 mg/dL (8.4-10.2); Creatinine 1 0.85 mg/dL (0.66-1.25); EST GLOMERULAR FILTRATION RATE 89.5 ML/MIN; Potassium 4.6 mmol/L (3.5-5.1); Total Protein 7.2 g/dL (6.3-8.2)
--- NOTE | 2023-04-06 16:28 | XRAY ---
Indication: Chest pain, cough, and short of breath. Positive Covid 19. Multiple contiguous axial images obtained through the chest without contrast as ordered. Comparison: None Lungs inflated with minimal bilateral dependent atelectasis. No suspicious pulmonary mass/nodule, infiltrate, or effusion. Heart not enlarged with CABG. Small mediastinal and tiny right hilar calcified nodes. No pathologic mediastinal lymphadenopathy. Bony thorax intact with mild degenerative changes throughout the spine and sternotomy wires. Limited upper abdomen including adrenal glands are unremarkable. Impression: Chronic findings including CABG, degenerative spondylosis, and old granulomatous disease. Remaining CT chest without contrast exam is normal.
[2023-04-06 18:32] VITALS: BP 140/70; PULSE 70; RESP 3; O2SAT 90
== END 2023-04-06 18:36 | disposition home or self-care (01) ==
LOC: ED 14:58
DX: U07.1 COVID-19 (principal); R05.9 Cough, unspecified; R07.9 Chest pain, unspecified; R06.02 Shortness of breath; E78.5 Hyperlipidemia, unspecified; E11.9 Type 2 diabetes mellitus without complications; I10 Essential (primary) hypertension; Z79.84 Long term (current) use of oral hypoglycemic drugs; Z79.85 Long-term (current) use of injectable non-insulin antidiabetic drugs; Z79.52 Long term (current) use of systemic steroids; Z79.891 Long term (current) use of opiate analgesic; Z79.899 Other long term (current) drug therapy
CPT/HCPCS: 36000; 36415; 71250; 80053; 83880; 84484; 85025; 93005; 94640; 94667; 94760; 96374; 99284; J2930; A9270-GY

== ENCOUNTER 2024-03-08 12:46 | Emergency (ER) | payer OTHER ==
[2024-03-08 13:06] VITALS: BP 177/78; TEMP 97.3
[2024-03-08] MEDS ORDERED: PROVENTIL 2.5 MG/3 ML NEB IH ONE (13:27)
[2024-03-08] MEDS: PROVENTIL 2.5 MG/3 ML NEB IH ONE (13:32)
[2024-03-08 13:46] LABS: A-aADO2 26; ABG HEMOGLOBIN 16.7; ABG POTASSIUM 4.4 (3.5-5.1); ABG SITE RIGHT RADIAL; ARTERIAL BLD GAS O2 SATURATION 94.1 % (95-100); ARTERIAL BLOOD GAS BASE EXCESS 5.1 (-2.0-2.0); ARTERIAL BLOOD GAS FIO2 21 %; ARTERIAL BLOOD GAS PCO2 46 mmHg (35-45); ARTERIAL BLOOD GAS PO2 66 mmHg (75-100); ARTERIAL BLOOD GAS pH 7.43 (7.35-7.45); CARBOXYHEMOGLOBIN 5.5 % THgb (0.0-6.9); HCO3- 30.5 (22-28); Methhemoglobin 0.9 % (1.4-1.5); paO2 pAO1 0.72
[2024-03-08 13:47] LABS: ALLEN TEST OK? YES
[2024-03-08 14:02] LABS: Absolute Neutrophil Ct (ANC) 6.24 x10^3/uL (1.78-5.38); BASOPHIL % 1.1 % (0.2-1.2); Basophil (Absolute #) 0.12 x10^3/uL (0.01-0.08); Eosinophil % 1.3 % (0.8-7.0); Eosinophil (Absolute #) 0.14 x10^3/uL (0.04-0.54); Hematocrit 51.5 % (40.1-51.0); Hemoglobin 17.2 g/dL (13.7-17.5); IMMATURE GRAN # 0.05 x10^3u/L (0.001-0.031); IMMATURE GRAN % 0.5 % (0.001-0.429); Lymphocyte (Absolute #) 3.37 x10^3/uL (1.32-3.57); Lymphocytes % 31.3 % (21.8-53.1); Mean Cell Volume 98.8 fL (79.0-92.2); Mean Corpuscular Hgb Concent. 33.4 g/dL (32.3-36.5); Mean Platelet Volume 8.6 fL (9.4-12.4); Monocyte (Absolute #) 0.86 x10^3/uL (0.30-0.82); Neutrophil % 57.8 % (34.0-67.9); Platelet Count 207 x10^3/uL (163-337); Red Blood Count 5.21 x10^6/uL (4.63-6.08); Red Cell Distribution Width 13.6 % (11.6-14.4); White Blood Count 10.8 x10^3/uL (4.23-9.07)
--- NOTE | 2024-03-08 14:03 | XRAY ---
Indication: Short of breath. Comparison: March 21, 2023 Portable apical lordotic chest again hyperinflated and clear. Heart not enlarged again with CABG. Bony thorax intact again with osteopenia and degenerative changes. No new/acute findings.
[2024-03-08 14:25] LABS: ALBUMIN 4.5 g/dL (3.5-5.0); ANION GAP 10.4 MEQ/L (5-15); BILIRUBIN,TOTAL 0.6 mg/dL (0.2-1.3); Calcium 9.3 mg/dL (8.4-10.2); Creatinine 1 0.81 mg/dL (0.66-1.25); EST GLOMERULAR FILTRATION RATE 90.8 ML/MIN; NT PRO BNPII 95.4 pg/mL (<300); Potassium 4.5 mmol/L (3.5-5.1); Total Protein 7.5 g/dL (6.3-8.2)
[2024-03-08 14:41] LABS: INFLUENZA A NEGATIVE (NEGATIVE); INFLUENZA B NEGATIVE (NEGATIVE); RESPIRATORY SYNCTIAL VIRUS NEGATIVE (NEGATIVE); SARS-CoV-2 Xpert Express NEGATIVE (NEGATIVE)
[2024-03-08] MEDS ORDERED: Sterile H2O 10 ml IJ ONE (14:46)
[2024-03-08] MEDS ORDERED: solu-MEDROL ONE (14:47)
[2024-03-08] MEDS: solu-MEDROL 125 MG, Sterile H2O 10 ml 2 ML IV ONE (14:49)
--- NOTE | 2024-03-08 15:13 | ERPHSYRPT ---
- History of Present Illness Time Seen by Provider: 03/08/24 15:11 Source: patient Exam Limitations: no limitations Patient Subjective Stated Complaint: cough, ears stuffed up, pain between his back shoulder blades Triage Nursing Assessment: Pt was brought to the ER by his neighbor, hypertensive, rates overall pain as 5/10, pulses normal, skin n/w/d, no difficulty breathing at this time, lungs clear, doesn't appear to be in any distress Physician History: 78-year-old male history of COPD current smoker presents to our ED for evaluation of a cough nasal congestion ear pressure and pain between his scapula. No chest pain no nausea no vomiting no diaphoresis. Patient was treated by the MD on an outpatient basis for COPD exacerbation. Patient completed a weeks worth of oral prednisone and antibiotics. Patient improved transiently but symptoms reoccurred. Symptoms are mild to moderate in intensity. No specific worsening improving factors. Today's complaints are similar to the [facility] Patient otherwise feels well. He voices no other complaints or concerns at this time. Portions of this note were created with voice recognition technology. There may be grammatical, spelling, punctuation or sound alike errors Timing/Duration: today Activities at Onset: none Severity of Dyspnea-Max: moderate Severity of Dyspnea-Current: mild Possible Cause: occasional episodes Modifying Factors: Improves With: nothing Associated Symptoms: denies symptoms Allergies/Adverse Reactions: Iodinated Contrast Media Allergy (Verified 04/06/23 15:15) Home Medications: Semaglutide [Ozempic] 0.75 ml SQ WEEKLY 04/06/23 [History] Albuterol Sulfate 1 puff IH QID 03/08/24 [History] Amlodipine Besylate 5 mg [Norvasc 5 mg] 5 mg PO DAILY 03/08/24 [History] Azithromycin 250 mg [Zithromax 250 MG TABLET] 250 mg PO DAILY 03/08/24 [History] Benzonatate 100 mg PO TID 03/08/24 [History] Chlorhexidine Gluconate [HIBICLENS 4% Scrub] 0 ml TOP DAILY 03/08/24 [History] Citalopram Hydrobromide [Celexa] 10 mg PO QAM 03/08/24 [History] Ezetimibe/Rosuvastatin Calcium [Rosuvastatin-Ezetimibe 20-10Mg] 1 each PO HS 03/08/24 [History] Fluticasone/Vilanterol [Breo Ellipta 50-25 Mcg Inhaler] 1 each IH DAILY 03/08/24 [History] Insulin Glargine-Yfgn 3 ml SQ HS 03/08/24 [History] Magnesium Oxide 400 mg [Mag-Ox 400] 400 mg PO DAILY 03/08/24 [History] Metformin HCl [Metformin ER Osmotic] 1,000 mg PO BID 03/08/24 [History] Metoprolol Succinate 50 mg [Toprol Xl 50 MG] 50 mg PO BID 03/08/24 [History] Naproxen 250 mg PO BID PRN 03/08/24 [History] Pramipexole Di-HCl [Pramipexole Dihydrochloride] 0.5 mg PO HS 03/08/24 [History] Prednisone 20 mg [Deltasone 20 mg] 20 mg PO DAILY 03/08/24 [History] Urea [Delroy-Urea] 20 ml TP HS 03/08/24 [History] lisinopriL [Lisinopril] 40 mg PO DAILY 03/08/24 [History] Hx Tetanus, Diphtheria Vaccination/Date Given: Yes Hx Influenza Vaccination/Date Given: Yes Hx Pneumococcal Vaccination/Date Given: Yes Travel Risk - International Travel Have you traveled outside of the country in past 3 weeks: No - Emerging Infectious Disease Are you exhibiting symptoms associated with any current EIDs: Yes Symptoms: Cough: New Onset, Fever, Shortness of Breath - Review of Systems Constitutional: No Symptoms Eyes: No Symptoms Ears, Nose, & Throat: No Symptoms Respiratory: No Symptoms, No Cough, No Dyspnea Cardiac: No Symptoms, No Chest Pain, No Edema, No Syncope Abdominal/Gastrointestinal: No Symptoms, No Abdominal Pain, No Nausea, No Vom iting, No Diarrhea Genitourinary Symptoms: No Symptoms, No Dysuria Musculoskeletal: No Symptoms, No Back Pain, No Neck Pain Skin: No Symptoms, No Rash Neurological: No Symptoms, No Dizziness, No Focal Weakness, No Sensory Changes Psychological: No Symptoms Endocrine: No Symptoms Hematologic/Lymphatic: No Symptoms Immunological/Allergic: No Symptoms All Other Systems: Reviewed and Negative - Past Medical History Pertinent Past Medical History: Yes Neurological History: No Pertinent History Cardiac History: Coronary Artery Disease, High Cholesterol, Hypertension, Myocardial Infarction (NH) Respiratory History: No Pertinent History Endocrine Medical History: Diabetes Type II Other Medical History: HX OF SAME INJURY TO LEFT QUAD WITH SURGICAL REPAIR. - Past Surgical History Past Surgical History: Yes Cardiac: CABG, Cardiac Stent Musculoskeletal: Orthopedic Surgery Other Surgical History: 10 stents, back surgeryl rotator cuff - Social History Smoking Status: Never smoker Exposure to second hand smoke: No Drug Use: none Patient Lives Alone: No - Social Determinants of Health Will the patient participate in the screening: Yes Do you worry about a steady place to live?: No Do you have any problems with any of the following?: No known problems In the past 12 months,have you had to go without utilities?: No Transportation Issues: No Has anyone in your support network made you feel unsafe?: No Have you or anyone in your house had to go without enough: No - Nursing Vital Signs Nursing Vital Signs: Initial Vital Signs Temperature 97.3 F 03/08/24 12:57 Pulse Rate 72 03/08/24 12:57 Blood Pressure 177/78 03/08/24 12:57 O2 Sat by Pulse Oximetry 96 03/08/24 12:57 Pain Scale Pain Intensity 5 - Physical Exam General Appearance: no apparent distress, alert Eye Exam: PERRL/EOMI Neck Exam: normal inspection, supple Respiratory Exam: diminished breath sounds, rhonchi, wheezing Cardiovascular/Chest Exam: normal heart sounds, regular rate/rhythm Abdominal/Gastrointestinal Exam: soft, No tenderness, No distention, No mass Extremity Exam: non-tender, normal range of motion, normal inspection, no calf tenderness, no pedal edema Neurologic Exam: alert, oriented x 3, cooperative, pneumatic deicer inspector II-XII nml as tested, sensation nml, No motor deficits Skin Exam: normal color, warm, No dry SpO2 Interpretation: normal SpO2: 96 O2 Delivery: Room Air - Course Nursing assessment & vital signs reviewed: Yes EKG Interpreted by Me: RATE (68), Sinus Rhythm, NORMAL AXIS, NORMAL INTERVALS, NORMAL QRS - Radiology Exams Chest X-ray Interpretation: Teleradiologist Report (Nonacute chest with chronic features) Ordered Tests: Active Orders 24 hr Category Date Time Status Drug Safety Scientist STAT Care 03/08/24 13:18 Active EKG-ER Only STAT Care 03/08/24 13:17 Active IV Insertion STAT Care 03/08/24 13:17 Active Pulse Oximetry (ED) STAT Care 03/08/24 13:17 Active CHEST 1 VIEW (PORTABLE) Stat Exams 03/08/24 13:18 Completed ABG [ARTERIAL BLOOD GASES] Stat Lab 03/08/24 13:45 Completed BLOOD CULTURE Stat Lab 03/08/24 13:56 Received CBC W DIFF Stat Lab 03/08/24 13:45 Completed CMP Stat Lab 03/08/24 13:45 Completed D-DIMER QUANTITATIVE Stat Lab 03/08/24 19:06 Completed NT PRO BNPII Stat Lab 03/08/24 13:45 Completed TROPONIN Q4H Lab 03/08/24 13:45 Completed TROPONIN Q4H Lab 03/08/24 17:56 Completed TROPONIN Q4H Lab 03/08/24 21:30 Ordered Respiratory Therapy Assessment DAILY RT 03/08/24 13:33 Completed Respiratory Therapy Assessment DAILY RT 03/08/24 16:28 Completed Respiratory Therapy Assessment DAILY RT 03/08/24 16:29 Completed Medication Summary Discontinued Medications Generic Name Dose Route Start Last Admin Trade Name Freq PRN Reason Stop Dose Admin Albuterol Sulfate 2.5 mg 03/08/24 13:17 03/08/24 13:32 Albuterol Sulfate 2.5 Mg/3 Ml Neb IH 03/08/24 13:18 2.5 mg STAT ONE Administration Albuterol Sulfate Confirm 03/08/24 13:27 Albuterol Sulfate 2.5 Mg/3 Ml Neb Administered 03/08/24 13:28 Dose 2.5 mg IH .STK-MED ONE Albuterol/Ipratropium 3 ml 03/08/24 15:18 03/08/24 16:27 Ipratropium/Albuterol Sulfate 3 Ml Ampul.Neb IH 03/08/24 15:19 3 ml STAT ONE Administration Albuterol/Ipratropium Confirm 03/08/24 16:08 Ipratropium/Albuterol Sulfate 3 Ml Ampul.Neb Administered 03/08/24 16:09 Dose 3 ml IH .STK-MED ONE Methylprednisolone Sodium 0 mg 03/08/24 13:17 03/08/24 14:49 Succinate 125 mg/ Sterile IV 03/08/24 13:18 125 mg Water 2 ml STAT ONE Administration Ceftriaxone Sodium 2 gm in 100 mls @ 200 mls/hr 12/17/24 15:03 03/08/24 16:10 Rocephin 2 Gm/100 Ml Nacl IV 03/08/24 15:32 Infused STAT ONE Infusion Azithromycin 500 mg in 250 mls @ 250 mls/hr 03/08/24 15:03 03/08/24 17:59 Zithromax 500 Mg/ 250 Ml Nacl Premix IV 03/08/24 16:02 Infused STAT STA Infusion Ceftriaxone Sodium Confirm 03/08/24 15:26 Rocephin 2 Gm/100 Ml Nacl Administered 03/08/24 15:27 Dose 2 gm in 100 mls @ ud IV .STK-MED ONE Azithromycin Confirm 03/08/24 16:08 Zithromax 500 Mg/ 250 Ml Nacl Premix Administered 03/08/24 16:09 Dose 500 mg in 250 mls @ ud IV .STK-MED ONE Methylprednisolone Sodium Succinate Confirm 03/08/24 14:47 Methylprednis Sod Succ 125 Mg/2 Ml Vial Administered 03/08/24 14:48 Dose 125 mg .ROUTE .STK-MED ONE Sterile Water Confirm 03/08/24 14:46 Water For Injection,Sterile 10 Ml Vial Administered 03/08/24 14:47 Dose 10 ml IJ .STK-MED ONE Lab/Rad Data: Laboratory Result Diagrams 03/08/24 13:45 03/08/24 13:45 Laboratory Results 03/08/24 03/08/24 03/08/24 Range/Units 19:06 17:56 13:45 WBC (4.23-9.07) x10^3/uL RBC (4.63-6.08) x10^6/uL Hgb (13.7-17.5) g/dL Hct (40.1-51.0) % MCV (79.0-92.2) fL MCH (25.7-32.2) pg MCHC (32.3-36.5) g/dL RDW (11.6-14.4) % Plt Count (163-337) x10^3/uL MPV (9.4-12.4) fL Gran % (34.0-67.9) % Immature Gran % (Auto) (0.001-0.429) % Nucleat RBC Rel Count (0.00-0.2) % Eos # (Auto) (0.04-0.54) x10^3/uL Immature Gran # (Auto) (0.001-0.031) x10^3u/L Absolute Lymphs (auto) (1.32-3.57) x10^3/uL Absolute Monos (auto) (0.30-0.82) x10^3/uL Absolute Nucleated RBC (0.00-0.012) x10^3u/L Lymphocytes % (21.8-53.1) % Monocytes % (5.3-12.2) % Eosinophils % (0.8-7.0) % Basophils % (0.2-1.2) % Absolute Granulocytes (1.78-5.38) x10^3/uL Basophils # (0.01-0.08) x10^3/uL D-Dimer 0.67 H* (0.0-0.50) mg/L Puncture Site RIGHT RADIAL pCO2 46 H (35-45) mmHg pO2 66 L (75-100) mmHg Base Excess 5.1 H (-2.0-2.0) O2 Saturation 88.0 L (94-100) g/dF ABG pH 7.43 (7.35-7.45) ABG HCO3 30.5 H* (22-28) ABG O2 Sat (Measured) 94.1 L (95-100) % Jerry Test YES A-a Gradient 26 a/A Ratio 0.72 Hemoglobin 16.7 Carboxyhemoglobin 5.5 (0.0-6.9) % THgb Methemoglobin 0.9 L (1.4-1.5) % Potassium 4.4 (3.5-5.1) Temperature 37.0 C POC O2 Flow Rate 21 % Sodium (135-145) mmol/L Chloride (98-107) mmol/L Carbon Dioxide (22-30) mmol/L Anion Gap (5-15) MEQ/L BUN (9-20) mg/dL Creatinine (0.66-1.25) mg/dL Estimated GFR ML/MIN Glucose (74-106) mg/dL Calcium (8.4-10.2) mg/dL Total Bilirubin (0.2-1.3) mg/dL AST (17-59) U/L ALT (0-50) U/L Alkaline Phosphatase (38-126) U/L Troponin I < 0.012 (0.000-0.033) ng/mL NT-Pro-B Natriuret Pep (<300) pg/mL Serum Total Protein (6.3-8.2) g/dL Albumin (3.5-5.0) g/dL Influenza Type A Ag (NEGATIVE) Influenza Type B Ag (NEGATIVE) RSV (PCR) (NEGATIVE) SARS-CoV-2 (PCR) (NEGATIVE) 03/08/24 03/08/24 03/08/24 Range/Units 13:45 13:45 13:45 WBC (4.23-9.07) x10^3/uL RBC (4.63-6.08) x10^6/uL Hgb (13.7-17.5) g/dL Hct (40.1-51.0) % MCV (79.0-92.2) fL MCH (25.7-32.2) pg MCHC (32.3-36.5) g/dL RDW (11.6-14.4) % Plt Count (163-337) x10^3/uL MPV (9.4-12.4) fL Gran % (34.0-67.9) % Immature Gran % (Auto) (0.001-0.429) % Nucleat RBC Rel Count (0.00-0.2) % Eos # (Auto) (0.04-0.54) x10^3/uL Immature Gran # (Auto) (0.001-0.031) x10^3u/L Absolute Lymphs (auto) (1.32-3.57) x10^3/uL Absolute Monos (auto) (0.30-0.82) x10^3/uL Absolute Nucleated RBC (0.00-0.012) x10^3u/L Lymphocytes % (21.8-53.1) % Monocytes % (5.3-12.2) % Eosinophils % (0.8-7.0) % Basophils % (0.2-1.2) % Absolute Granulocytes (1.78-5.38) x10^3/uL Basophils # (0.01-0.08) x10^3/uL D-Dimer (0.0-0.50) mg/L Puncture Site pCO2 (35-45) mmHg pO2 (75-100) mmHg Base Excess (-2.0-2.0) O2 Saturation (94-100) g/dF ABG pH (7.35-7.45) ABG HCO3 (22-28) ABG O2 Sat (Measured) (95-100) % Jerry Test A-a Gradient a/A Ratio Hemoglobin Carboxyhemoglobin (0.0-6.9) % THgb Methemoglobin (1.4-1.5) % Potassium 4.5 (3.5-5.1) Temperature C POC O2 Flow Rate % Sodium 133 L (135-145) mmol/L Chloride 98 (98-107) mmol/L Carbon Dioxide 29 (22-30) mmol/L Anion Gap 10.4 (5-15) MEQ/L BUN 18 (9-20) mg/dL Creatinine 0.81 (0.66-1.25) mg/dL Estimated GFR 90.8 ML/MIN Glucose 118 H (74-106) mg/dL Calcium 9.3 (8.4-10.2) mg/dL Total Bilirubin 0.60 (0.2-1.3) mg/dL AST 50 (17-59) U/L ALT 65 H (0-50) U/L Alkaline Phosphatase 67 (38-126) U/L Troponin I < 0.012 (0.000-0.033) ng/mL NT-Pro-B Natriuret Pep 95.4 (<300) pg/mL Serum Total Protein 7.5 (6.3-8.2) g/dL Albumin 4.5 (3.5-5.0) g/dL Influenza Type A Ag NEGATIVE (NEGATIVE) Influenza Type B Ag NEGATIVE (NEGATIVE) RSV (PCR) NEGATIVE (NEGATIVE) SARS-CoV-2 (PCR) NEGATIVE (NEGATIVE) 03/08/24 Range/Units 13:45 WBC 10.8 H (4.23-9.07) x10^3/uL RBC 5.21 (4.63-6.08) x10^6/uL Hgb 17.2 (13.7-17.5) g/dL Hct 51.5 H (40.1-51.0) % MCV 98.8 H (79.0-92.2) fL MCH 33.0 H (25.7-32.2) pg MCHC 33.4 (32.3-36.5) g/dL RDW 13.6 (11.6-14.4) % Plt Count 207 (163-337) x10^3/uL MPV 8.6 L (9.4-12.4) fL Gran % 57.8 (34.0-67.9) % Immature Gran % (Auto) 0.5 H (0.001-0.429) % Nucleat RBC Rel Count 0.0 (0.00-0.2) % Eos # (Auto) 0.14 (0.04-0.54) x10^3/uL Immature Gran # (Auto) 0.05 H (0.001-0.031) x10^3u/L Absolute Lymphs (auto) 3.37 (1.32-3.57) x10^3/uL Absolute Monos (auto) 0.86 H (0.30-0.82) x10^3/uL Absolute Nucleated RBC 0.00 (0.00-0.012) x10^3u/L Lymphocytes % 31.3 (21.8-53.1) % Monocytes % 8.0 (5.3-12.2) % Eosinophils % 1.3 (0.8-7.0) % Basophils % 1.1 (0.2-1.2) % Absolute Granulocytes 6.24 H (1.78-5.38) x10^3/uL Basophils # 0.12 H (0.01-0.08) x10^3/uL D-Dimer (0.0-0.50) mg/L Puncture Site pCO2 (35-45) mmHg pO2 (75-100) mmHg Base Excess (-2.0-2.0) O2 Saturation (94-100) g/dF ABG pH (7.35-7.45) ABG HCO3 (22-28) ABG O2 Sat (Measured) (95-100) % Jerry Test A-a Gradient a/A Ratio Hemoglobin Carboxyhemoglobin (0.0-6.9) % THgb Methemoglobin (1.4-1.5) % Potassium (3.5-5.1) Temperature C POC O2 Flow Rate % Sodium (135-145) mmol/L Chloride (98-107) mmol/L Carbon Dioxide (22-30) mmol/L Anion Gap (5-15) MEQ/L BUN (9-20) mg/dL Creatinine (0.66-1.25) mg/dL Estimated GFR ML/MIN Glucose (74-106) mg/dL Calcium (8.4-10.2) mg/dL Total Bilirubin (0.2-1.3) mg/dL AST (17-59) U/L ALT (0-50) U/L Alkaline Phosphatase (38-126) U/L Troponin I (0.000-0.033) ng/mL NT-Pro-B Natriuret Pep (<300) pg/mL Serum Total Protein (6.3-8.2) g/dL Albumin (3.5-5.0) g/dL Influenza Type A Ag (NEGATIVE) Influenza Type B Ag (NEGATIVE) RSV (PCR) (NEGATIVE) SARS-CoV-2 (PCR) (NEGATIVE) - Progress Progress: improved Air Movement: good Progress Note: 78-year-old male presents to our ED for evaluation of a cough. No chest pain no shortness of breath. Patient did describe pain between his shoulder blades. Patient also complained of nasal congestion and ear pressure. Physical exam essentially nonremarkable. Breath sounds revealed diminished wheezes with rhonchi. No respiratory distress. Oxygen saturation within normal limits. Troponin negative x 2. Ambulatory pulse oximetry was normal. Normal saturations. No tachypnea no tachycardia. Chest x-ray showed no acute findings with chronic features. Patient reassessed. He is resting comfortably. Vital stable. No chest pain or shortness of breath no coughing observed after treatment with albuterol Solu-Medrol and antibiotics. We will discharge patient home. Patient agreed to follow-up with his primary care doctor within 48 hours for reevaluation. He voices no other complaints or concerns at this time. Portions of this note were created with voice recognition technology. There may be grammatical, spelling, punctuation or sound alike errors Complexity of problem addressed is moderate acute complicated. No critical care time. Complexity of data reviewed and analyzed is moderate. Test ordered chest reviewed results analyzed and correlated clinically with history and physical exam. Risk of complication and or risk of morbidity/mortality of patient management is moderate. A prescription for doxycycline, Augmentin, prednisone and albuterol inhaler forwarded to patient's pharmacy. Patient agrees to follow-up with his primary care doctor within 48 hours for reevaluation. He voices no other complaints or concerns at this time. Vital stable. Time spent to discharge patient is approximately 10 minutes. Plan of care established for shared decision making. No social determinants of health present to impede follow-up. Portions of this note were created with voice recognition technology. There may be grammatical, spelling, punctuation or sound alike errors 03/08/24 18:43 03/08/24 18:45 D-dimer 0.67 which is negative age-adjusted 03/08/24 19:55 Blood Culture(s) Obtained: Yes Antibiotics given: Yes Counseled pt/family regarding: lab results, diagnosis, need for follow-up, rad results - Departure Departure Disposition: Home Clinical Impression: Cough, COPD exacerbation Condition: Stable Critical Care Time: No Referrals: HOSPITAL,'S [Primary Care Provider] - Follow up/PCP as directed Instructions: Chronic Obstructive Pulmonary Disease Additional Instructions: Discharge/Care Plan BRITTANI TAYLOR CARLITO was seen on 03/08/24 in the Emergency Room. The patient was counseled regarding Diagnosis,Lab results, Imaging studies, need for follow up and when to return to the Emergency Room. Prescriptions given: Discharge Note I have spoken with the patient and/or caregivers. I have explained the patient's condition, diagnosis and treatment plan based on the information available to me at this time. I have answered the patient's and/or caregiver's questions and addressed any concerns. The patient and/or caregivers have as good understanding of the patient's diagnosis, condition and treatment plan as can be expected at this point. The vital signs have been stable. The patient's condition is stable and appropriate for discharge from the emergency department. The patient will pursue further outpatient evaluation with the primary care physician or other designated or consulting physician as outlined in the discharge instructions. The patient and/or caregivers are agreeable to this plan of care and follow-up instructions have been explained in detail. The patient and/or caregivers have received these instruction. The patient/and or caregivers are aware that any significant change in condition or worsening of symptoms should prompt an immediate return to this or the closest emergency department or call 911. Prescriptions: Amox Tr/Potass Clav. 875 mg [Augmentin 875-125 Tablet] 875 mg PO BID 7 Days #14 tablet Prednisone 10 mg [Deltasone 10 mg] 40 mg PO DAILY 3 Days #12 tablet Albuterol 8 gm Mdi Hfa [Ventolin Hfa MDI] 8 gm IH Q4H PRN #1 inhaler PRN Reason: Cough Doxycycline Hyclate 100 mg [Vibramycin 100 MG] 100 mg PO BID 7 Days #14 tab
[2024-03-08] MEDS ORDERED: ROCEPHIN 2 GM/100 ML NACL 2 GM/100 ML IVPB IV ONE (15:26)
[2024-03-08] MEDS: ROCEPHIN 2 GM/100 ML NACL 2 GM/100 ML IVPB IV ONE (15:31)
[2024-03-08] MEDS ORDERED: DUONEB 0.5-3 MG/3 ml Neb IH ONE (16:08)
[2024-03-08] MEDS: Zithromax 500 MG/ 250 ML NaCl Premix 500 MG/250 ML IVPB IV STA (16:08)
[2024-03-08] MEDS ORDERED: Zithromax 500 MG/ 250 ML NaCl Premix 500 MG/250 ML IVPB IV ONE (16:08)
[2024-03-08] MEDS: DUONEB 0.5-3 MG/3 ml Neb IH ONE (16:27)
[2024-03-08 16:59] VITALS: O2SAT 96
[2024-03-08 17:23] VITALS: RESP 17
[2024-03-08 20:11] VITALS: PULSE 97
== END 2024-03-08 20:10 | disposition home or self-care (01) ==
LOC: ED 12:46
DX: J44.1 Chronic obstructive pulmonary disease with (acute) exacerbation (principal); R05.9 Cough, unspecified; R09.81 Nasal congestion; Z79.899 Other long term (current) drug therapy; M54.6 Pain in thoracic spine
CPT/HCPCS: 0241U; 36415; 36600; 71045; 80053; 82375; 82803; 83880; 84484; 85025; 85379; 87040; 93005; 93041; 94640; 94760; 96365; 96367; 96374; 99284; J0456; J0696; J2919; J7609; A9270-GY

== ENCOUNTER 2024-07-05 12:04 | Emergency (ER) | payer OTHER ==
[2024-07-05 12:17] VITALS: TEMP 96.8
[2024-07-05 12:41] LABS: Absolute Neutrophil Ct (ANC) 3.33 x10^3/uL (1.78-5.38); BASOPHIL % 1.4 % (0.2-1.2); Eosinophil % 3.7 % (0.8-7.0); Eosinophil (Absolute #) 0.27 x10^3/uL (0.04-0.54); Hematocrit 48.4 % (40.1-51.0); Hemoglobin 16.8 g/dL (13.7-17.5); IMMATURE GRAN # 0.02 x10^3u/L (0.001-0.031); IMMATURE GRAN % 0.3 % (0.001-0.429); Lymphocyte (Absolute #) 2.84 x10^3/uL (1.32-3.57); Lymphocytes % 38.7 % (21.8-53.1); Mean Cell Volume 95.8 fL (79.0-92.2); Mean Corpuscular Hemoglobin 33.3 pg (25.7-32.2); Mean Corpuscular Hgb Concent. 34.7 g/dL (32.3-36.5); Mean Platelet Volume 8.8 fL (9.4-12.4); Monocyte (Absolute #) 0.78 x10^3/uL (0.30-0.82); Monocytes % 10.6 % (5.3-12.2); Neutrophil % 45.3 % (34.0-67.9); Platelet Count 194 x10^3/uL (163-337); Red Blood Count 5.05 x10^6/uL (4.63-6.08); Red Cell Distribution Width 13.3 % (11.6-14.4); White Blood Count 7.3 x10^3/uL (4.23-9.07)
[2024-07-05] MEDS ORDERED: Zofran 4 MG/2 ML VIAL ONE (12:41)
[2024-07-05] MEDS ORDERED: MORPHINE SULFATE 4 MG INJ ONE (12:41)
[2024-07-05] MEDS: Zofran 4 MG/2 ML VIAL IV ONE (12:43)
--- NOTE | 2024-07-05 12:43 | ERPHSYRPT ---
- History of Present Illness Time Seen by Provider: 07/05/24 12:20 Historian: patient Exam Limitations: no limitations Patient Subjective Stated Complaint: Pt states "I have had right lower belly pain for a couple of days. IT has been getting worse and worse. It really hurts when I move." Triage Nursing Assessment: Pt presented alert and oriented X 3, skin pwd. Pt ambualtes with a slow gait. Pt grunts and moans when he moves and guards his right lower abdomen. Physician History: 79-year-old male presents to emergency department for evaluation of right lower abdominal pain that has been progressively worsening over the past couple days. No trauma no fever no dysuria. Patient states his appendix still in. No ass ociated nausea or vomiting no diarrhea no rash. Patient otherwise feels well. He denies a history of the same. Patient voices no other complaints or concerns at this time. Portions of this note were created with voice recognition technology. There may be grammatical, spelling, punctuation or sound alike errors Timing/Duration: today Activities at Onset: none Quality: aching Abdominal Pain Onset Location: RLQ Pain Radiation: back Severity of Pain-Max: moderate Severity of Pain-Current: mild Modifying Factors: Improves With: movement Associated Symptoms: denies symptoms Previous symptoms: no prior history Allergies/Adverse Reactions: Iodinated Contrast Media Allergy (Verified 04/06/23 15:15) Home Medications: Semaglutide [Ozempic] 0.75 ml SQ WEEKLY 04/06/23 [History] Albuterol Sulfate 1 puff IH QID 03/08/24 [History] Amlodipine Besylate 5 mg [Norvasc 5 mg] 5 mg PO DAILY 03/08/24 [History] Citalopram Hydrobromide [Celexa] 10 mg PO QAM 03/08/24 [History] Ezetimibe/Rosuvastatin Calcium [Rosuvastatin-Ezetimibe 20-10Mg] 1 each PO HS 03/08/24 [History] Fluticasone/Vilanterol [Breo Ellipta 50-25 Mcg Inhaler] 1 each IH DAILY 03/08/24 [History] Insulin Glargine-Yfgn 3 ml SQ HS 03/08/24 [History] Magnesium Oxide 400 mg [Mag-Ox 400] 400 mg PO DAILY 03/08/24 [History] Metformin HCl [Metformin ER Osmotic] 1,000 mg PO BID 03/08/24 [History] Metoprolol Succinate 50 mg [Toprol Xl 50 MG] 50 mg PO BID 03/08/24 [History] Naproxen 250 mg PO BID PRN 03/08/24 [History] Urea [Delroy-Urea] 20 ml TP HS 03/08/24 [History] lisinopriL [Lisinopril] 40 mg PO DAILY 03/08/24 [History] Hx Tetanus, Diphtheria Vaccination/Date Given: Yes Hx Influenza Vaccination/Date Given: Yes Hx Pneumococcal Vaccination/Date Given: Yes Immunizations Up to Date: No Travel Risk - International Travel Have you traveled outside of the country in past 3 weeks: No - Emerging Infectious Disease Are you exhibiting symptoms associated with any current EIDs: No Symptoms: Cough: New Onset, Fever, Shortness of Breath - Review of Systems Constitutional: No Symptoms, No Fever, No Chills Eyes: No Symptoms Ears, Nose, & Throat: No Symptoms Respiratory: No Symptoms, No Cough, No Dyspnea Cardiac: No Symptoms, No Chest Pain, No Edema, No Syncope Abdominal/Gastrointestinal: No Symptoms, No Abdominal Pain, No Nausea, No Vomiting, No Diarrhea Genitourinary Symptoms: No Symptoms, No Dysuria Musculoskeletal: No Symptoms, No Back Pain, No Neck Pain Skin: No Symptoms, No Rash Neurological: No Symptoms, No Dizziness, No Focal Weakness, No Sensory Changes Psychological: No Symptoms Endocrine: No Symptoms Hematologic/Lymphatic: No Symptoms Immunological/Allergic: No Symptoms All Other Systems: Reviewed and Negative - Past Medical History Pertinent Past Medical History: Yes Neurological History: No Pertinent History Cardiac History: Coronary Artery Disease, High Cholesterol, Hypertension, Myocardial Infarction ([place]) Respiratory History: No Pertinent History Endocrine Medical History: Diabetes Type II Other Medical History: HX OF SAME INJURY TO LEFT QUAD WITH SURGICAL REPAIR. - Past Surgical History Past Surgical History: Yes Cardiac: CABG, Cardiac Stent Musculoskeletal: Orthopedic Surgery Other Surgical History: 10 stents, back surgeryl rotator cuff - Social History Smoking Status: Current every day smoker How long have you smoked: years Exposure to second hand smoke: Yes Drug Use: none - Social Determinants of Health Will the patient participate in the screening: Yes Do you worry about a steady place to live?: No Do you have any problems with any of the following?: No known problems In the past 12 months,have you had to go without utilities?: No Transportation Issues: No Has anyone in your support network made you feel unsafe?: No Have you or anyone in your house had to go w/o enough food: No - Nursing Vital Signs Nursing Vital Signs: Initial Vital Signs Temperature 96.8 F 07/05/24 12:12 Pulse Rate 70 07/05/24 12:12 Respiratory Rate 20 07/05/24 12:12 Blood Pressure 208/108 07/05/24 12:12 O2 Sat by Pulse Oximetry 96 07/05/24 12:12 Pain Scale Pain Intensity 0 - Physical Exam General Appearance: no apparent distress, alert Eye Exam: PERRL/EOMI, eyes nml inspection Ears, Nose, Throat Exam: normal ENT inspection, pharynx normal, moist mucous membranes Neck Exam: normal inspection, full range of motion Respiratory Exam: normal breath sounds, lungs clear, airway intact, No respiratory distress Cardiovascular Exam: regular rate/rhythm, normal heart sounds Gastrointestinal/Abdomen Exam: soft, No tenderness, No mass Back Exam: normal inspection, normal range of motion, No CVA tenderness, No vertebral tenderness Extremity Exam: normal inspection, normal range of motion, pelvis stable Neurologic Exam: alert, oriented x 3, cooperative, normal mood/affect, sensation nml, No motor deficits Skin Exam: normal color, warm, dry Lymphatic Exam: No adenopathy SpO2 Interpretation: airway management int. SpO2: 96 O2 Delivery: Room Air - Course Nursing assessment & vital signs reviewed: Yes EKG Interpreted by Me: RATE (71), Sinus Rhythm, NORMAL AXIS, NORMAL INTERVALS, NORMAL QRS Ordered Tests: Active Orders 24 hr Category Date Time Status IV Insertion STAT Care 07/05/24 12:22 Active ABDOMEN AND PELVIS W/0 CONTRAS [CT] Stat Exams 07/05/24 12:22 Completed CBC W DIFF Stat Lab 07/05/24 12:34 Completed CMP Stat Lab 07/05/24 12:34 Completed TROPONIN Q4H Lab 07/05/24 12:34 Completed TROPONIN Q4H Lab 07/05/24 16:30 Ordered TROPONIN Q4H Lab 07/05/24 20:30 Ordered UA W/RFX UR CULTURE Stat Lab 07/05/24 14:03 Completed Medication Summary Discontinued Medications Generic Name Dose Route Start Last Admin Trade Name Freq PRN Reason Stop Dose Admin Morphine Sulfate 4 mg 07/05/24 12:27 07/05/24 12:45 Morphine Sulfate 4 Mg/Ml Injection IV 07/05/24 12:28 4 mg STAT ONE Administration Morphine Sulfate Confirm 07/05/24 12:41 Morphine Sulfate 4 Mg/Ml Injection Administered 07/05/24 12:42 Dose 4 mg .ROUTE .STK-MED ONE Ondansetron HCl 4 mg 07/05/24 12:27 07/05/24 12:43 Ondansetron Hcl 4 Mg/2 Ml Vial IV 07/05/24 12:28 4 mg STAT ONE Administration Ondansetron HCl Confirm 07/05/24 12:41 Ondansetron Hcl 4 Mg/2 Ml Vial Administered 07/05/24 12:42 Dose 4 mg .ROUTE .STK-MED ONE Lab/Rad Data: Laboratory Result Diagrams 07/05/24 12:34 07/05/24 12:34 Laboratory Results 07/05/24 07/05/24 07/05/24 Range/Units 14:03 12:34 12:34 WBC (4.23-9.07) x10^3/uL RBC (4.63-6.08) x10^6/uL Hgb (13.7-17.5) g/dL Hct (40.1-51.0) % MCV (79.0-92.2) fL MCH (25.7-32.2) pg MCHC (32.3-36.5) g/dL RDW (11.6-14.4) % Plt Count (163-337) x10^3/uL MPV (9.4-12.4) fL Gran % (34.0-67.9) % Immature Gran % (Auto) (0.001-0.429) % Nucleat RBC Rel Count (0.00-0.2) % Eos # (Auto) (0.04-0.54) x10^3/uL Immature Gran # (Auto) (0.001-0.031) x10^3u/L Absolute Lymphs (auto) (1.32-3.57) x10^3/uL Absolute Monos (auto) (0.30-0.82) x10^3/uL Absolute Nucleated RBC (0.00-0.012) x10^3u/L Lymphocytes % (21.8-53.1) % Monocytes % (5.3-12.2) % Eosinophils % (0.8-7.0) % Basophils % (0.2-1.2) % Absolute Granulocytes (1.78-5.38) x10^3/uL Basophils # (0.01-0.08) x10^3/uL Sodium 133 L (135-145) mmol/L Potassium 4.3 (3.5-5.1) mmol/L Chloride 96 L (98-107) mmol/L Carbon Dioxide 25 (22-30) mmol/L Anion Gap 16.0 H (5-15) MEQ/L BUN 10 (9-20) mg/dL Creatinine 0.74 (0.66-1.25) mg/dL Estimated GFR 92.7 ML/MIN Glucose 132 H (74-106) mg/dL Calcium 8.9 (8.4-10.2) mg/dL Total Bilirubin 0.70 (0.2-1.3) mg/dL AST 37 (17-59) U/L ALT 30 (0-50) U/L Alkaline Phosphatase 68 (38-126) U/L Troponin I < 0.012 (0.000-0.033) ng/mL Serum Total Protein 6.7 (6.3-8.2) g/dL Albumin 4.4 (3.5-5.0) g/dL Urine Color Yellow (Yellow) Urine Appearance Clear (Clear) Urine pH 7.0 (4.6-8.0) Ur Specific Rueter 1.010 (1.005-1.030) Urine Protein Negative (Negative) Urine Glucose (UA) Negative (Negative) mg/dL Urine Ketones Negative (Negative) Urine Blood Negative (Negative) Urine Nitrite Negative (Negative) Urine Bilirubin Negative (Negative) Urine Urobilinogen 0.2 (0.2) mg/dL Ur Leukocyte Esterase Negative (Negative) U Hyaline Cast (Auto) NONE SEEN (0-2) /LPF Urine Microscopic RBC 0-2 (0-5) /HPF Urine Microscopic WBC 0-2 (0-5) /HPF Ur Epithelial Cells None Seen (None Seen) /HPF Urine Bacteria None Seen (None Seen) /HPF Urine Culture Reflexed NO (NO) 04/15/25 Range/Units 12:34 WBC 7.3 (4.23-9.07) x10^3/uL RBC 5.05 (4.63-6.08) x10^6/uL Hgb 16.8 (13.7-17.5) g/dL Hct 48.4 (40.1-51.0) % MCV 95.8 H (79.0-92.2) fL MCH 33.3 H (25.7-32.2) pg MCHC 34.7 (32.3-36.5) g/dL RDW 13.3 (11.6-14.4) % Plt Count 194 (163-337) x10^3/uL MPV 8.8 L (9.4-12.4) fL Gran % 45.3 (34.0-67.9) % Immature Gran % (Auto) 0.3 (0.001-0.429) % Nucleat RBC Rel Count 0.0 (0.00-0.2) % Eos # (Auto) 0.27 (0.04-0.54) x10^3/uL Immature Gran # (Auto) 0.02 (0.001-0.031) x10^3u/L Absolute Lymphs (auto) 2.84 (1.32-3.57) x10^3/uL Absolute Monos (auto) 0.78 (0.30-0.82) x10^3/uL Absolute Nucleated RBC 0.00 (0.00-0.012) x10^3u/L Lymphocytes % 38.7 (21.8-53.1) % Monocytes % 10.6 (5.3-12.2) % Eosinophils % 3.7 (0.8-7.0) % Basophils % 1.4 H (0.2-1.2) % Absolute Granulocytes 3.33 (1.78-5.38) x10^3/uL Basophils # 0.10 H (0.01-0.08) x10^3/uL Sodium (135-145) mmol/L Potassium (3.5-5.1) mmol/L Chloride (98-107) mmol/L Carbon Dioxide (22-30) mmol/L Anion Gap (5-15) MEQ/L BUN (9-20) mg/dL Creatinine (0.66-1.25) mg/dL Estimated GFR ML/MIN Glucose (74-106) mg/dL Calcium (8.4-10.2) mg/dL Total Bilirubin (0.2-1.3) mg/dL AST (17-59) U/L ALT (0-50) U/L Alkaline Phosphatase (38-126) U/L Troponin I (0.000-0.033) ng/mL Serum Total Protein (6.3-8.2) g/dL Albumin (3.5-5.0) g/dL Urine Color (Yellow) Urine Appearance (Clear) Urine pH (4.6-8.0) Ur Specific Rueter (1.005-1.030) Urine Protein (Negative) Urine Glucose (UA) (Negative) mg/dL Urine Ketones (Negative) Urine Blood (Negative) Urine Nitrite (Negative) Urine Bilirubin (Negative) Urine Urobilinogen (0.2) mg/dL Ur Leukocyte Esterase (Negative) U Hyaline Cast (Auto) (0-2) /LPF Urine Microscopic RBC (0-5) /HPF Urine Microscopic WBC (0-5) /HPF Ur Epithelial Cells (None Seen) /HPF Urine Bacteria (None Seen) /HPF Urine Culture Reflexed (NO) - Progress Progress: improved Progress Note: 79-year-old male presents to the emergency department for evaluation of pain in the right lower quadrant. Physical exam reveals tenderness to palpation at McBurney's point. Overlying soft tissue intact. No testicular pain. Laboratory workup essentially nonremarkable. CT abdomen pelvis negative for acute pathology. Patient reassessed. Pain essentially resolved. Patient has mild residual soreness when he walks but he feels it is not significant. We will discharge patient home. Patient to follow-up with his primary care doctor within 48 hours for a reevaluation. Portions of this note were created with voice recognition technology. There may be grammatical, spelling, punctuation or sound alike errors Complexity of problem addressed is moderate acute complicated. No critical care time. Complex of data reviewed and analyzed as moderate. Test ordered test reviewed results analyzed and correlated clinically with history and physical exam. Risk of complication and or risk of morbidity/mortality of patient management is moderate. A prescription for Toradol forwarded to patient's pharmacy. Vital stable. Time spent to discharge patient is approximately 10 minutes. Plan of care established for shared decision making. No social determinants of health present to impede follow-up. Portions of this note were created with voice recognition technology. There may be grammatical, spelling, punctuation or sound alike errors 07/05/24 15:43 Counseled pt/family regarding: lab results, diagnosis, rad results - Departure Departure Disposition: Home Clinical Impression: Right lower quadrant pain, Fatty liver, Nephrolithiasis Condition: Stable Critical Care Time: No Referrals: [facility]OSPITAL,'S [Primary Care Provider] - Follow up/PCP as directed Instructions: Abdominal pain Additional Instructions: Discharge/Care Plan BRITTANI TAYLOR was seen on 07/05/24 in the Emergency Room. The patient was counseled regarding Diagnosis,Lab results, Imaging studies, need for follow up and when to return to the Emergency Room. Prescriptions given: Discharge Note I have spoken with the patient and/or caregivers. I have explained the patient's condition, diagnosis and treatment plan based on the information available to me at this time. I have answered the patient's and/or caregiver's questions and add ressed any concerns. The patient and/or caregivers have as good understanding of the patient's diagnosis, condition and treatment plan as can be expected at this point. The vital signs have been stable. The patient's condition is stable and appropriate for discharge from the emergency department. The patient will pursue further outpatient evaluation with the primary care physician or other designated or consulting physician as outlined in the discharge instructions. The patient and/or caregivers are agreeable to this plan of care and follow-up instructions have been explained in detail. The patient and/or caregivers have received these instruction. The patient/and or caregivers are aware that any significant change in condition or worsening of symptoms should prompt an immediate return to this or the closest emergency department or call 911. Prescriptions: Ketorolac Trometh 10 mg Tab [TORAdol 10 MG TABLET] 10 mg PO TID 5 Days #15 tablet
[2024-07-05] MEDS: MORPHINE SULFATE 4 MG INJ IV ONE (12:45)
[2024-07-05 12:58] LABS: ALBUMIN 4.4 g/dL (3.5-5.0); BILIRUBIN,TOTAL 0.7 mg/dL (0.2-1.3); Calcium 8.9 mg/dL (8.4-10.2); Creatinine 1 0.74 mg/dL (0.66-1.25); EST GLOMERULAR FILTRATION RATE 92.7 ML/MIN; Potassium 4.3 mmol/L (3.5-5.1); Total Protein 6.7 g/dL (6.3-8.2)
[2024-07-05 14:18] LABS: Appearance Clear (Clear); Bacteria None Seen /HPF (None Seen); Bilirubin Negative (Negative); Blood Negative (Negative); Epithelial Cells None Seen /HPF (None Seen); Glucose, Urine Negative (Negative); Hyaline Casts NONE SEEN /LPF (0-2); Ketones Negative (Negative); Leukocyte Esterase Negative (Negative); Nitrite Negative (Negative); Protein,Urine Dip Negative (Negative); RBC 0-2 /HPF (0-5); Urobilinogen 0.2 mg/dL (0.2); WBC 0-2 /HPF (0-5)
--- NOTE | 2024-07-05 14:35 | XRAY ---
Indication: Right lower quadrant pain 2 days. Multiple contiguous axial images obtained through the abdomen and pelvis without contrast. Comparison: January 07, 2021 Lung bases again demonstrates minimal dependent atelectasis. No infiltrate or effusion. Heart not enlarged. Noncontrasted stomach and bowel loops nonobstructed again with normal appendix. Stable fatty liver and nonobstructing left renal punctate calculus. No free fluid/air. Remaining liver, gallbladder, pancreas, spleen, adrenal glands, kidneys, ureters, and bladder are unremarkable for noncontrast exam. Again moderate scattered aortoiliac calcifications without AAA. 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 Impression: 1. Again chronic findings including fatty liver, nonobstructing left renal punctate calculus, arteriosclerotic disease, and chronic bony findings. 2. Remaining CT abdomen/pelvis without contrast exam continues to be negative.
[2024-07-05 15:35] VITALS: BP 142/77; PULSE 74; RESP 18
[2024-07-05 15:47] VITALS: O2SAT 96
== END 2024-07-05 15:58 | disposition home or self-care (01) ==
LOC: ED 12:04
DX: N20.0 Calculus of kidney (principal); K76.0 Fatty (change of) liver, not elsewhere classified; R10.31 Right lower quadrant pain; E78.5 Hyperlipidemia, unspecified; I10 Essential (primary) hypertension; E11.9 Type 2 diabetes mellitus without complications; Z79.85 Long-term (current) use of injectable non-insulin antidiabetic drugs; Z79.4 Long term (current) use of insulin; Z79.84 Long term (current) use of oral hypoglycemic drugs; Z79.899 Other long term (current) drug therapy; Z72.0 Tobacco use
CPT/HCPCS: 36415; 74176; 80053; 81001; 84484; 85025; 93005; 96374; 96375; 99284; 99285; J2270; J2405